=== PATIENT | female | born 1945 | race Caucasian/White ===

== ENCOUNTER 2019-07-27 07:26 | Outpatient (CLI) | payer MEDICARE, SELFPAY ==
--- NOTE | ~2019-07-27 | CT_ITS ---
EXAMINATION: CT chest w con EXAM DATE: 07/27/2019 08:22 INDICATION: Left-sided lung cancer follow-up. TECHNIQUE: Spiral CT of the chest following intravenous injection of 75 mL Omnipaque 350. Axial, cor onal and sagittal images were reviewed. Coronal maximum intensity pixel images of chest reviewed. Jake silva dose-length product (DLP) for this examination was 276.48 mGy-cm. The exposure was tailored accor ding to patient size (auto mA exposure control), and iterative reconstruction (ASIR) was used as zen tional dose reduction technique. Comparison is made to prior examination from 01/26/2019. FINDINGS: The lungs are clear. There is moderate emphysema. The main, central pulmonary arteries are dilated which can indicate elevated pulmonary arterial pressure, pulmonary arterial hypertension. The re is been partial left pneumonectomy. There is high pericardial recess accounting for the anterior m ediastinal fluid density. No central pulmonary emboli. There are no pleural or pericardial effusions . Tracheobronchial tree is patent. There is no mediastinal, hilar or axillary lymphadenopathy. There is no pneumothorax. Heart normal in size. There is mild coronary arterial calcification, ar terial sclerosis. Abdominal aortic endograft. There is thoracic spondylosis without osteoblastic or osteolytic lesions identified. There is no significant interval change. IMPRESSION: 1. Partial left pneumonectomy. Stable exam. 2. Moderate emphysema. Reviewed, dictated and finalized at location A.
[2019-07-27 08:17] LABS: Estimated Glomerular Filt Rate 54
== END 2019-07-27 07:27 | disposition home or self-care (01) ==
PROVIDERS: PCP Family Medicine; Visit Provider Internal Medicine Hematology & Oncology
DX: C34.92 Malignant neoplasm of unspecified part of left bronchus or lung (principal); J43.9 Emphysema, unspecified; Z90.2 Acquired absence of lung [part of]
CPT/HCPCS: 36415; 71260; Q9967

== ENCOUNTER 2020-04-07 11:50 | Outpatient (CLI) | payer MEDICARE, OTHER, SELFPAY ==
[2020-04-07 12:11] LABS: Basophils Absolute Auto 0.1 K/mm3 (0.0-0.1); Basophils Percent Auto 0.8 % (0.2-1.2); Eosinophils Absolute Auto 0.1 K/mm3 (0-0.3); Eosinophils Percent Auto 1.8 % (0-4.4); Hematocrit 45.7 % (37.0-47.0); Hemoglobin 15.2 g/dL (12.0-15.0); Immature Granulocyte Absolute 0.02 K/mm3 (0.00-0.031); Immature Granulocyte Percent A 0.3 % (0-0.5); Lymphocytes Absolute Auto 2.56 K/mm3 (0.9-3.2); Lymphocytes Percent Auto 35.7 % (18.3-44.2); Mean Corpuscular HGB Conc 33.3 g/dl (32-36); Mean Corpuscular Hemoglobin 30.1 pg (26-34); Mean Corpuscular Volume 90.5 fl (80-100); Mean Platelet Volume 10.1 fl (7.4-10.4); Monocytes Absolute Auto 0.5 K/mm3 (0.1-0.6); Monocytes Percent Auto 6.4 % (2.6-8.5); Neutrophils Absolute Auto 3.9 K/mm3 (1.3-6.7); Platelet Count Result 207 k/mm3 (150-375); Red Blood Count 5.05 M/mm3 (4.2-5.4); Red Cell Distribution Width 13.7 % (11.5-14.5); White Blood Count 7.2 K/mm3 (4.5-10.0)
[2020-04-07 12:20] LABS: Hemoglobin A1C 5.3 % (<5.7)
[2020-04-07 12:25] LABS: Alanine Aminotransferase 15 U/L (4-35); Albumin Level 4.3 g/dL (3.5-5.1); Alkaline Phosphatase 73 U/L (38-126); Anion Gap 7 mmol/L (8-16); Aspartate Amino Transferase 22 U/L (14-36); Bilirubin,Total 0.5 mg/dL (0.2-1.3); Blood Urea Nitrogen 19 mg/dL (7-17); Calcium 9.4 mg/dL (8.4-10.2); Carbon Dioxide 26 mmol/L (22-30); Chloride 108 mmol/L (98-107); Cholesterol 289 mg/dL (0-200); Estimated Glomerular Filt Rate 54; Glucose 95 mg/dL (65-105); HDL Direct 49 mg/dL; Potassium 4.6 mmol/L (3.4-5.0); Sodium 141 mmol/L (137-145); Triglycerides 223 mg/dL (<150)
[2020-04-07 12:38] LABS: LDL Cholesterol Direct 179 mg/dL
== END 2020-04-07 11:51 | disposition home or self-care (01) ==
LOC: ANHLAB 11:53
PROVIDERS: PCP Family Medicine; Visit Provider Family Medicine
DX: I10 Essential (primary) hypertension (principal); R73.03 Prediabetes
CPT/HCPCS: 36415; 80053; 80061; 83036; 85025

== ENCOUNTER 2020-09-20 09:57 | Outpatient (CLI) | payer MEDICARE, OTHER, SELFPAY ==
[2020-09-20 10:20] LABS: Basophils Absolute Auto 0.1 K/mm3 (0.0-0.1); Eosinophils Absolute Auto 0.2 K/mm3 (0-0.3); Eosinophils Percent Auto 1.9 % (0-4.4); Hematocrit 42.4 % (37.0-47.0); Hemoglobin 13.9 g/dL (12.0-15.0); Immature Granulocyte Absolute 0.01 K/mm3 (0.00-0.031); Immature Granulocyte Percent A 0.1 % (0-0.5); Lymphocytes Absolute Auto 2.87 K/mm3 (0.9-3.2); Lymphocytes Percent Auto 37.1 % (18.3-44.2); Mean Corpuscular HGB Conc 32.8 g/dl (32-36); Mean Corpuscular Hemoglobin 29.6 pg (26-34); Mean Corpuscular Volume 90.4 fl (80-100); Mean Platelet Volume 10.4 fl (7.4-10.4); Monocytes Absolute Auto 0.5 K/mm3 (0.1-0.6); Monocytes Percent Auto 6.3 % (2.6-8.5); Neutrophils Absolute Auto 4.1 K/mm3 (1.3-6.7); Neutrophils Percent Auto 53.6 % (45.5-73.1); Platelet Count Result 187 k/mm3 (150-375); Red Blood Count 4.69 M/mm3 (4.2-5.4); Red Cell Distribution Width 13.7 % (11.5-14.5); White Blood Count 7.7 K/mm3 (4.5-10.0)
[2020-09-20 10:23] LABS: Blood Urea Nitrogen 23 mg/dL (8-26); Carbon Dioxide 27 mmol/L (22-30); Chloride 107 mmol/L (98-109); Estimated Glomerular Filt Rate 49; Glucose 95 mg/dL (70-105); Potassium 4.8 mmol/L (3.5-4.9); Sodium 142 mmol/L (138-146)
[2020-09-20 12:51] LABS: Alanine Aminotransferase 21 U/L (4-35); Alkaline Phosphatase 66 U/L (38-126); Anion Gap 4 mmol/L (8-16); Aspartate Amino Transferase 23 U/L (14-36); Bilirubin,Total 0.4 mg/dL (0.2-1.3); Blood Urea Nitrogen 21 mg/dL (7-17); Calcium 9.3 mg/dL (8.4-10.2); Carbon Dioxide 26 mmol/L (22-30); Chloride 110 mmol/L (98-107); Estimated Glomerular Filt Rate 54; Glucose 95 mg/dL (65-105); Potassium 4.9 mmol/L (3.4-5.0); Sodium 140 mmol/L (137-145)
== END 2020-09-20 09:58 | disposition home or self-care (01) ==
PROVIDERS: PCP Family Medicine; Visit Provider Internal Medicine Hematology & Oncology
DX: C34.12 Malignant neoplasm of upper lobe, left bronchus or lung (principal)
CPT/HCPCS: 36415; 80048; 80053; 85025

== ENCOUNTER 2020-09-22 08:05 | Outpatient (CLI) | payer MEDICARE, OTHER, SELFPAY ==
--- NOTE | ~2020-09-22 | CT_ITS ---
EXAMINATION: CT diagnostic chest w con DATE: 09/22/2020 08:54 INDICATION: Malignant neoplasm of the upper lobe of the left lung TECHNIQUE: Transaxial computed tomographic images of the chest were obtained after the administration of 75 cc of Omnipaque 350 intravenous contrast. The dose-length product (DLP) was 219.36 mGy-cm. Ite rative reconstruction was used. COMPARISON: 07/27/2019 FINDINGS: There is moderate emphysema. A new 7 mm nodule is present in the right lung apex on image 2 5. Changes of the left upper lobectomy are noted. There is no pleural effusion or pneumothorax. No pa thologically enlarged thoracic lymph nodes are identified. The heart size is normal. A partially imag ed endoluminal stent is noted in the abdominal aorta. There is a small sliding hiatal hernia. IMPRESSION: 1. Right upper lobe nodule concerning for primary bronchogenic carcinoma. Recommend follow-up CT in t hree months, PET/CT, or biopsy. Reviewed, dictated and finalized at location A. IMPRESSION: 1. Right upper lobe nodule concerning for primary bronchogenic carcinoma. Recom mend follow-up CT in three months, PET/CT, or biopsy.
== END 2020-09-22 08:06 | disposition home or self-care (01) ==
PROVIDERS: PCP Family Medicine; Visit Provider Internal Medicine Hematology & Oncology
DX: C34.12 Malignant neoplasm of upper lobe, left bronchus or lung (principal)
CPT/HCPCS: 71260; Q9967

== ENCOUNTER 2021-02-02 15:25 | Outpatient (CLI) | payer MEDICARE, OTHER, SELFPAY ==
--- NOTE | ~2021-02-02 | DEXA_ITS ---
Bone Density Report Name: Shonda De La Fuente Age: 76 Sex: Female Ethnicity: White Date of : 1945 Indication: postmenopausal; height loss; cancer; asthma or emphysema; Referring Provider: JAYCEE ORLANDO Study: Bone densitometry was performed. Exam Date: February 02, 2021 Accession number: [id number] Bone Density: Region BMD T-score Z-score Classification AP Spine (L1, L2, L3) 1.091 0.7 3.0 Normal Femoral Neck (Left) 0.667 -1.6 0.4 Osteopenia Total Hip (Left) 0.878 -0.5 1.3 Normal Total Hip Bilateral Avg 0.907 -0.3 1.5 Normal Femoral Neck (Right) 0.756 -0.8 1.2 Normal Total Hip (Right) 0.935 -0.1 1.7 Normal World Health Organization criteria for BMD impression classify patients as: Normal (T-score at or above -1.0), Osteopenia (T-score between -1.0 and -2.5), or Osteoporosis (T-score at or below -2.5). 10-year Fracture Risk(1): Major Osteoporotic Fracture 12% Hip Fracture 3.9% Reported Risk Factors: [place] (), Neck BMD=0.667, BMI=28.3, smoking (1) FRAX(R) Version 3.08. Fracture probability calculated for an untreated patient. Fracture probability may be lower if the patient has received treatment. Clinical Information Provided by Patient: Smokes Has the following medical conditions: Asthma or Emphysema, Cancer Patient maximum height was 67 Menopause Age: 49 No regular weight bearing exercise Drinks caffeinated beverages Onset of menses at age 14 Number of children 2 Impression: The patient has low bone mass, based on the Left Femoral Neck T-score. The patient has an estimated ten-year risk of hip fracture of 3.9% and an estimated ten-year risk of major fracture of 12%, based on the WHO FRAX algorithm. The patient has risk factors, including: smoking. Discussion: BONE DENSITY IS LOW AT ONE OR MORE SKELETAL SITES. THE PATIENT'S BMD AND CLINICAL RISK FACTORS CONTRIBUTE TO THIS PATIENT'S INCREASED RISK OF FRACTURE. This patient's lowest T-score is low at one or more skeletal sites. It meets the World Health Organization's (WHO) criteria for ?low bone mass? (T-score between -1.0 and -2.5). The patient's 10-year risk of hip fracture as calculated by FRAX exceeds the threshold where pharmacological therapy is recommended by the National Osteoporosis Foundation (NOF). However, all treatment decisions require clinical judgment and consideration of individual patient factors, including patient preferences, comorbidities, previous drug use, risk factors not captured in the FRAX model (e.g., frailty, falls, vitamin D deficiency, increased bone turnover, interval significant decline in bone density) and possible under or overestimation of fracture risk by FRAX. The patient should follow a healthful lifestyle (good nutrition with adequate calcium and vitamin D, and appropriate weight-bearing exerc
--- NOTE | ~2021-02-02 | US_ITS ---
US pelvic complete w TV DATE: 02/02/2021 16:35 INDICATION: Right ovarian cyst TECHNIQUE: Real-time imaging via transabdominal and transvaginal approaches COMPARISON: None FINDINGS: The uterus measures 6.1 cm height, 3.3 cm AP and 3.8 cm transverse dimension. There is a very prominent up to 14.5 x 25 mm irregular hyperechoic vascular area at the central uteri ne fundus, apparently within the uterine cavity suspicious for endometrial cancer. Submucosal uterine fibroid is considered much less likely. Gynecologic consult is recommended. The right ovary measures 3.1 x 2.4 x 1.9 cm, with vascularity. There is a 2.5 x 1.6 x 2.2 cm right ovarian cyst. The left ovary measures 2.1 x 1.3 x 1.1 cm, with vascularity. The ovaries are otherwise unremarkable. No abnormal pelvic free fluid collection is detected. IMPRESSION: Prominent irregular hypoechoic vascular mass within the endometrial cavity, likely due to endometrial cancer 2.5 cm right ovarian cyst Dr. Herndon contacted the emergency service for Dr. Polo on 02/03/2021 at 1626 hours to relay the resul ts. Dr. Valadez was to be contacted so that the report endometrial mass likely due to malignancy could be delivered. Reviewed, dictated and finalized at Location A. Reviewed, dictated and finalized at location A. IMPRESSION: Prominent irregular hypoechoic vascular mass within the endometrial cavity, likely due to endometrial cancer 2.5 cm right ovarian cyst Dr. Herndon contacted the emergency service for Dr. Polo on 02/03/2021 at 1626 ho urs to relay the results. Dr. Valadez was to be contacted so that the report endometrial mass likely due t o malignancy could be delivered.
== END 2021-02-02 15:26 | disposition home or self-care (01) ==
PROVIDERS: PCP Family Medicine; Visit Provider Obstetrics & Gynecology
DX: N83.201 Unspecified ovarian cyst, right side (principal); Z78.0 Asymptomatic menopausal state; M85.852 Other specified disorders of bone density and structure, left thigh
CPT/HCPCS: 76830; 76856; 77080

== ENCOUNTER 2021-03-20 01:23 | Day surgery (SDC) | payer MEDICARE, OTHER, SELFPAY ==
[2021-03-15 12:31] VITALS: BMI 28.1
--- NOTE | 2021-03-16 12:11 | PM.IMHP ---
H&P: HPI History of Present Illness Date/Time: 03/16/21 12:11 76 year old with endometrial lesion on ultrasound. She denies postmenopausal bleeding, pelvic pain, vaginal discharge Chief Complaint: endometrial mas on ultrasound Review of Systems Review of Systems: All systems reviewed & are unremarkable except as noted in HPI and below PMFSH Past Medical History Medical History Basal cell carcinoma of skin of other and unspecified parts of face COPD (chronic obstructive pulmonary disease) Essential (primary) hypertension Insomnia Multiple lung nodules on CT Osteoarthritis Primary adenocarcinoma of upper lobe of left lung Skin cancer 2016 Vaginal delivery x2 Vitamin D deficiency Surgical History Surgical History History of AAA (abdominal aortic aneurysm) repair 07/2017 History of appendectomy (~1959) 1959 History of gastric surgery (~2017) stent placed in stomach 2017 History of lobectomy of lung 08/2017 - left upper lobe Family History Family History Mother Patient's mother is in good health Family history of cardiovascular disease, Onset Age: 83 Father Patient's father is in good health Family history of cardiovascular disease, Onset Age: 85 Family history of lung cancer Sibling Family history of type 2 diabetes mellitus Diabetes mellitus Grandparent Family history unknown, Onset Age: 92 Social History Social History Smoking packs per day: 1 Smoking cigarettes per day: 20.0 Years smoked: 64 Smoking pack-years: 64.00 Smoking status: Current every day smoker Tobacco type: cigarettes Second hand tobacco smoke exposure: Yes Smoking end date: 03/26/19 Additional smoking assessment comments: Patient started smoking last month, if she is unable to sleep she smokes. Alcohol intake: current Alcohol use details: STATES ABOUT 4 BOTTLES OF BAILEYS [place]ON CREAM/YEAR Substance use: current Substance use type: marijuana Other substance usage details: STATES 1/4 OZ/WEEK - SMOKES DAILY Last use: 03/14/21 Spiritual care concerns: No Meds Home Medications and Allergies Home Medications Medication Instructions Recorded Confirmed Type aspirin-caffeine 500 mg-32.5 mg 1 tablet PO DAILY 01/07/20 03/15/21 History tablet atorvastatin 40 mg tablet 40 mg PO DAILY #90 tablet 10/18/20 03/15/21 Rx lisinopril 20 mg tablet 20 mg PO DAILY #90 tablet 11/23/20 03/15/21 Rx hydroxyzine HCl 10 mg tablet 10 mg PO .QHS PRN tablet 01/09/21 03/15/21 History alprazolam 0.5 mg tablet 0.25 mg PO DAILY PRN #30 tablet 01/27/21 03/15/21 Rx cholecalciferol (vitamin D3) 1,250 1,250 mcg PO WEEKLY #12 cap 01/30/21 03/15/21 Rx mcg (50,000 unit) capsule albuterol sulfate [Ventolin HFA] See Rx Instructions INHALATION Q4H 03/15/21 03/15/21 History PRN Allergies Allergy/AdvReac Type Severity Reaction Status Date / Time adhesive tape AdvReac Unknown SWELLING, Verified 03/15/21 12:28 REDDNESS Exam Const: General: healthy appearing, no acute distress, alert and awake Resp: Auscultation: clear to auscultation bilaterally Cardio: Rate: regular rate Rhythm: regular rhythm GI: Inspection: non-distended GI Palp: Yes Soft to palpation and No Tenderness to palpation present (GI) : Bimanual exam- vagina & uterus: normal bimanual exam, uterine size normal, uterine mobility normal, non-tender and soft Bimanual Exam- Adnexa, other: normal adnexae, no masses and No adnexal tenderness Extrem: General: no pedal edema and no calf tenderness Psych: Mental Status: mental status grossly normal Assessment and Plan Assessment and plan (1) Endometrial mass: Code(s): N94.89 - Other specified conditions associate
[2021-03-20 10:15] VITALS: BP 145/87; PULSE 55; RESP 18; TEMP 36.2; O2SAT 96; BMI 28.0
[2021-03-20] MEDS: ACETAMINOPHEN 500 MG TABLET 1000 MG PO (10:32)
[2021-03-20] MEDS: LACTATED RINGERS 1,000 ML 30 ML IV CONT (11:00)
--- NOTE | 2021-03-20 11:04 | SUR.PREOP ---
1000; pt states she had an episode of diarrhea this morning. States she feels just fine .
--- NOTE | 2021-03-20 11:23 | WPDANESEPPF ---
Anes - Initial Pre Proc Eval Procedure: Operation Date: 03/20/21 12:00 Proposed Procedures p Hysteroscopy, Dilation and Curettage, Possible Removal Endometrial Mass, Possible Myosure - Karoline Rowe MD Date/Time: 03/20/21 11:23 Surgeon: Karoline Rowe MD Pre Op Diagnosis: endometrial mass Patient Data Age: 76 Gender: F Height: 1.65 m Weight: 76.4 kg Last Vital Signs Temp 36.2 C L 03/20/21 10:15 Pulse 55 L 03/20/21 10:15 Resp 18 03/20/21 10:15 BP 145/87 H 03/20/21 10:15 Pulse Ox 96 03/20/21 10:15 Allergies Allergy/AdvReac Type Severity Reaction Status Date / Time adhesive tape AdvReac Unknown SWELLING, Verified 03/20/21 10:04 REDDNESS Home Medications Medication Instructions Recorded Confirmed Type aspirin-caffeine 500 mg-32.5 mg 1 tablet PO DAILY 01/07/20 03/15/21 History tablet atorvastatin 40 mg tablet 40 mg PO DAILY #90 tablet 10/18/20 03/20/21 Rx lisinopril 20 mg tablet 20 mg PO DAILY #90 tablet 11/23/20 03/20/21 Rx hydroxyzine HCl 10 mg tablet 10 mg PO .QHS PRN tablet 01/09/21 03/20/21 History alprazolam 0.5 mg tablet 0.25 mg PO DAILY PRN #30 tablet 01/27/21 03/20/21 Rx cholecalciferol (vitamin D3) 1,250 1,250 mcg PO WEEKLY #12 cap 01/30/21 03/20/21 Rx mcg (50,000 unit) capsule albuterol sulfate [Ventolin HFA] See Rx Instructions INHALATION Q4H 03/15/21 03/20/21 History PRN Patient hx anesthesia problems: none Family hx anesthesia problems: none Results Review: All pre-operative results and documents have been reviewed as part of the pre-operative evaluation. [facility] Past Medical History Medical History Basal cell carcinoma of skin of other and unspecified parts of face COPD (chronic obstructive pulmonary disease) Essential (primary) hypertension Insomnia Multiple lung nodules on CT Osteoarthritis Primary adenocarcinoma of upper lobe of left lung Skin cancer 2016 Vaginal delivery x2 Vitamin D deficiency Surgical History Surgical History History of AAA (abdominal aortic aneurysm) repair 07/2017 History of appendectomy (~1960) 1960 History of gastric surgery (~2017) stent placed in stomach 2017 History of lobectomy of lung 08/2017 - left upper lobe Family History Family History Mother Patient's mother is in good health Family history of cardiovascular disease, Onset Age: 83 Father Patient's father is in good health Family history of cardiovascular disease, Onset Age: 85 Family history of lung cancer Sibling Family history of type 2 diabetes mellitus Diabetes mellitus Grandparent Family history unknown, Onset Age: 92 Social History Social History Smoking packs per day: 1 Smoking cigarettes per day: 20.0 Years smoked: 64 Smoking pack-years: 64.00 Smoking status: Current every day smoker Tobacco type: cigarettes Second hand tobacco smoke exposure: Yes Smoking end date: 03/26/19 Additional smoking assessment comments: Patient started smoking last month, if she is unable to sleep she smokes. Alcohol intake: current Alcohol use details: STATES ABOUT 4 BOTTLES OF BAILEYS [place] CREAM/YEAR Substance use: current Substance use type: marijuana Other substance usage details: STATES 1/4 OZ/WEEK - SMOKES DAILY Last use: 03/14/21 Living arrangements: alone Spiritual care concerns: No Anes - Eval Final PreProcedure Day of Procedure 03/20/21 11:23 Patient weight: overweight Heart: regular rate and rhythm Lungs: rhonchi and wheezes Airway: Mallampati scale class II and special considerations poor dentition Neurological: alert and oriented ASA classification: III Emergent: no Anesthetic plan: proceed Anesthesia type and monitoring: general GIVS and standar
--- NOTE | 2021-03-20 11:37 | WPDHPUPDATE1 ---
History and Physical Update Update Date/Time: 03/20/21 11:37 History and Physical has been reviewed, including an updated exam of the patient. There are NO changes in the patient's condition. Risks, benefits, and alternatives have been discussed and questions answered. Patient agrees to proceed with procedure.
--- NOTE | 2021-03-20 12:31 | W.PM.PROC2 ---
Procedure Note - Detailed Date of Procedure 03/20/21 Pre-op Diagnosis endometrial mass Post-op Diagnosis same Procedure Performed D&C, hysteroscopy, removal of endometrial lesions using MyoSure Surgeon Karoline Rowe MD Anesthesia MAC Indications Endometrial mass suspicious for cancer seen on ultrasound Findings solid mass on posterior endometrial wall, visually consistent with fibroid Description of Procedure She was taken to the operating room where she was sedated and placed in the dorsal lithotomy position. A speculum was placed in the vagina. The anterior lip of the cervix was grasped with single-tooth tenaculum. The cervix was dilated to allow passage of the hysteroscope. A solid endometrial mass was visible coming from the posterior wall of the endometrium. This mass looked consistent with a fibroid. The MyoSure scope and device were made ready. The MyoSure device was used, under direct visualization, to remove the entire endometrial lesion. Once the endometrial cavity appeared normal and the lesion was entirely removed, the hysteroscope was removed. The tenaculum was removed from the cervix. Excellent hemostasis was visualized of the tenaculum sites. There was a slight amount of bleeding coming from the cervical os, consistent with the probable fibroid being removed. All instruments were removed from the vagina. She tolerated the procedure well. Sponge, lap, and instrument counts were correct x2. She was taken to the recovery room in stable condition. Estimated Blood Loss 20 Drains No Packing No Pathology yes Complications No immediate complications Condition stable Disposition PACU
[2021-03-20 13:19] VITALS: BP 152/77; PULSE 55; RESP 18; O2SAT 95
[2021-03-20 13:50] VITALS: BP 152/90; PULSE 48
[2021-03-20 14:05] VITALS: BP 155/88; PULSE 45
== END 2021-03-20 14:11 | disposition home or self-care (01) ==
PROVIDERS: PCP Family Medicine; Visit Provider Obstetrics & Gynecology
PROC: 0U5B8ZZ Destruction of Endometrium, Via Natural or Artificial Opening Endoscopic (ICD-10-PCS; CPT 58563; principal; 2021-03-20 12:00)
DX: D25.0 Submucous leiomyoma of uterus (principal); N85.8 Other specified noninflammatory disorders of uterus; Z79.82 Long term (current) use of aspirin; Z79.51 Long term (current) use of inhaled steroids; J44.9 Chronic obstructive pulmonary disease, unspecified; I10 Essential (primary) hypertension; Z85.828 Personal history of other malignant neoplasm of skin; M19.90 Unspecified osteoarthritis, unspecified site; Z85.118 Personal history of other malignant neoplasm of bronchus and lung; E55.9 Vitamin D deficiency, unspecified; F17.210 Nicotine dependence, cigarettes, uncomplicated; F12.90 Cannabis use, unspecified, uncomplicated
CPT/HCPCS: 58561; 88305; A9270; J2704; J3010; J7030; J7120

== ENCOUNTER 2021-03-23 09:16 | Outpatient (CLI) | payer MEDICARE, OTHER, SELFPAY ==
[2021-03-23 09:33] LABS: Basophils Absolute Auto 0.1 K/mm3 (0.0-0.1); Basophils Percent Auto 0.6 % (0.2-1.2); Eosinophils Absolute Auto 0.1 K/mm3 (0-0.3); Eosinophils Percent Auto 1.1 % (0-4.4); Hematocrit 48.4 % (37.0-47.0); Hemoglobin 15.6 g/dL (12.0-15.0); Immature Granulocyte Absolute 0.01 K/mm3 (0.00-0.031); Immature Granulocyte Percent A 0.1 % (0-0.5); Lymphocytes Absolute Auto 2.56 K/mm3 (0.9-3.2); Lymphocytes Percent Auto 27.7 % (18.3-44.2); Mean Corpuscular HGB Conc 32.2 g/dl (32-36); Mean Corpuscular Hemoglobin 29.6 pg (26-34); Mean Corpuscular Volume 91.8 fl (80-100); Mean Platelet Volume 10.6 fl (7.4-10.4); Monocytes Absolute Auto 0.6 K/mm3 (0.1-0.6); Monocytes Percent Auto 6.7 % (2.6-8.5); Neutrophils Absolute Auto 5.9 K/mm3 (1.3-6.7); Neutrophils Percent Auto 63.8 % (45.5-73.1); Platelet Count Result 205 k/mm3 (150-375); Red Blood Count 5.27 M/mm3 (4.2-5.4); Red Cell Distribution Width 13.9 % (11.5-14.5); White Blood Count 9.2 K/mm3 (4.5-10.0)
[2021-03-23 09:37] LABS: Blood Urea Nitrogen 19 mg/dL (8-26); Carbon Dioxide 24 mmol/L (22-30); Chloride 105 mmol/L (98-109); Estimated Glomerular Filt Rate 54; Glucose 110 mg/dL (70-105); Potassium 4.4 mmol/L (3.5-4.9); Sodium 143 mmol/L (138-146)
[2021-03-23 11:07] LABS: Alanine Aminotransferase 25 U/L (4-35); Albumin Level 4.5 g/dL (3.5-5.1); Alkaline Phosphatase 81 U/L (38-126); Anion Gap 10 mmol/L (8-16); Aspartate Amino Transferase 29 U/L (14-36); Bilirubin,Total 0.7 mg/dL (0.2-1.3); Blood Urea Nitrogen 18 mg/dL (7-17); Calcium 9.9 mg/dL (8.4-10.2); Carbon Dioxide 24 mmol/L (22-30); Chloride 108 mmol/L (98-107); Estimated Glomerular Filt Rate 54; Glucose 109 mg/dL (65-110); Potassium 4.4 mmol/L (3.4-5.0); Sodium 142 mmol/L (137-145)
== END 2021-03-23 09:17 | disposition home or self-care (01) ==
LOC: ANHLAB 09:19
PROVIDERS: PCP Family Medicine; Visit Provider Internal Medicine Hematology & Oncology
DX: C34.12 Malignant neoplasm of upper lobe, left bronchus or lung (principal)
CPT/HCPCS: 36415; 80048; 80053; 85025

== ENCOUNTER 2021-03-28 08:01 | Outpatient (CLI) | payer MEDICARE, OTHER, SELFPAY ==
--- NOTE | ~2021-03-28 | CT_ITS ---
EXAMINATION: CT diagnostic chest w con DATE: 03/28/2021 08:44 INDICATION: Follow-up right upper lobe nodule TECHNIQUE: Computed tomography (CT) of the chest was performed with 75 cc intravenous contrast. The d ose-length product was 155.76 mGy-cm. Automated exposure control and iterative reconstruction technPatsnap ue were employed. COMPARISON: CT dated 09/22/2020 FINDINGS: There is residual thymic tissue. No evidence for central pulmonary embolism. Borderline siz ed precarinal lymph node measuring 9 mm unchanged. Heart size normal. No significant pleural or peric ardial effusion. There is partially visualized aortic stent in the upper abdomen. There is moderate e mphysema. There is an enlarging spiculated nodule in the right upper lobe measuring 10 mm greatest di mension compared with 7 mm on prior examination. No endobronchial lesions.There is a 5 mm groundglass nodule of the right upper lobe anteriorly which is new since prior examination. No focal lytic or bl astic lesions are identified. IMPRESSION: 1. Enlarging spiculated right upper lobe nodule, concerning for bronchogenic carcinoma. New 5 mm righ t upper lobe nodule. Cannot exclude metastatic disease. Correlation with percutaneous biopsy or PET/C T scan recommended. Reviewed, dictated and finalized at location A. INUM POOL INSTALLER IMPRESSION: 1. Enlarging spiculated right upper lobe nodule, concerning for bronchogenic ca rcinoma. New 5 mm right upper lobe nodule. Cannot exclude metastatic disease. C orrelation with percutaneous biopsy or PET/CT scan recommended.
== END 2021-03-28 08:02 | disposition home or self-care (01) ==
LOC: ANHIMG 08:04
PROVIDERS: PCP Family Medicine; Visit Provider Internal Medicine Hematology & Oncology
DX: R91.1 Solitary pulmonary nodule (principal)
CPT/HCPCS: 71260; Q9967

== ENCOUNTER 2021-04-04 07:42 | Outpatient (CLI) | payer MEDICARE, OTHER, SELFPAY ==
--- NOTE | ~2021-04-04 | PE_ITS ---
EXAMINATION: PET skull to mid thigh DATE: 04/04/2021 11:06 INDICATION: Lung nodule. TECHNIQUE: Blood glucose level was 105 mg/dL. 9.34 mCi of 18-fluorodeoxyglucose (18-FDG) was administ ered i.v. Low dose computed tomography (CT) images were acquired from the base of the brain to the pr oximal thighs for attenuation correction and anatomic localization. Automated exposure control was em ployed. Dose-length product (DLP) was 602 mGy-cm. Positron emission tomography (PET) images were acqu ired in the same distribution. COMPARISON: Chest CT 03/28/2021, 09/22/20 FINDINGS: Head/neck: There are no pathologically enlarged lymph nodes. Chest: There is moderate emphysema. There is a 9 mm cavitary nodule with maximum SUV of 3.5 in right lung upper lobe. A calcified left lung nodule and calcified left hilar lymph nodes are consistent wit h old granulomatous disease. There are changes of left upper lobectomy. No pleural effusion. Cardiome ludwig is noted. No pericardial effusion. There are coronary artery calcifications. Abdomen/pelvis/proximal thighs: The liver, gallbladder, spleen, pancreas, adrenal glands, and kidneys are normal. 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 There are no dilated loops of bowel. There is diverticulosis of the colon wi thout evidence of diverticulitis. There are no pathologically enlarged lymph nodes. There is no free intraperitoneal fluid. There is a hemangioma in L2 vertebral body. IMPRESSION: 1. 9 mm nodule with increased activity in right lung upper lobe, increased from 7 mm on 09/22/2020, con sistent with primary bronchogenic carcinoma versus metastatic disease. 2. Moderate emphysema. 3. Left lung upper lobectomy. Reviewed, dictated and finalized at location A. MOGRAPH RECORDER IMPRESSION: 1. 9 mm nodule with increased activity in right lung upper lobe, increased from 7 mm on 09/22/2020, consistent with primary bronchogenic carcinoma versus metast atic disease. 2. Moderate emphysema. 3. Left lung upper lobectomy.
[2021-04-04 08:03] LABS: Glucose Point of Care 105 mg/dl (65-105)
== END 2021-04-04 07:43 | disposition home or self-care (01) ==
LOC: ANHIMG 07:48
PROVIDERS: PCP Family Medicine; Visit Provider Internal Medicine Hematology & Oncology
DX: R91.1 Solitary pulmonary nodule (principal); J43.9 Emphysema, unspecified
CPT/HCPCS: 78815; A9552

== ENCOUNTER 2021-07-26 09:24 | Outpatient (CLI) | payer MEDICARE, OTHER, SELFPAY ==
--- NOTE | ~2021-07-26 | CT_ITS ---
EXAMINATION: CT diagnostic chest w con EXAM DATE: 07/26/2021 10:01 INDICATION: Lung nodule demonstrating increased FDG activity. Follow-up. Partial left pneumonectomy. TECHNIQUE: Spiral CT of the chest following intravenous injection of 75 mL Omnipaque 350. Axial, cor onal and sagittal images of the chest were reviewed. Coronal maximum intensity pixel images of chest reviewed. The dose-length product (DLP) for this examination was 200.75 mGy-cm. The exposure was t ailored according to patient size (auto mA exposure control), and iterative reconstruction (ASIR) was used as additional dose reduction technique. Comparison is made to prior examination from 03/28/2021. FINDINGS: Previously reported right apical nodule measures 3 x 5 mm today, was 9 mm maximally in Nov ember, has substantially decreased in volume. There is moderate emphysema and hyperinflation. No pulm onary emboli. There are no pleural or pericardial effusions. Tracheobronchial tree is patent. Th ere is no mediastinal, hilar or axillary lymphadenopathy. There is no pneumothorax. Heart normal in size. There is mild coronary arterial calcification, arterial sclerosis. Abdominal aortic stent . There is mild thoracic spondylosis without osteoblastic or osteolytic lesions identified. IMPRESSION: 1. Substantial decrease in volume of right apical nodule, treated lung cancer or inflammatory proces s. 2. Moderate emphysema and hyperinflation. 3. Partial left pneumonectomy. Reviewed, dictated and finalized at location A. WHEEL ALIGNMENT SPECIALIST IMPRESSION: 1. Substantial decrease in volume of right apical nodule, treated lung cancer or inflammatory process. 2. Moderate emphysema and hyperinflation. 3. Partial left pneumonectomy.
[2021-07-26 09:55] LABS: Estimated Glomerular Filt Rate 54
== END 2021-07-26 09:25 | disposition home or self-care (01) ==
LOC: ANHIMG 09:27
PROVIDERS: PCP Family Medicine; Visit Provider Internal Medicine Hematology & Oncology
DX: R91.1 Solitary pulmonary nodule (principal); J43.9 Emphysema, unspecified; R91.8 Other nonspecific abnormal finding of lung field
CPT/HCPCS: 71260; Q9967

== ENCOUNTER 2021-11-02 09:23 | Outpatient (CLI) | payer MEDICARE, OTHER, SELFPAY ==
[2021-11-02 09:42] LABS: Basophils Absolute Auto 0.1 K/mm3 (0.0-0.1); Basophils Percent Auto 0.7 % (0.2-1.2); Eosinophils Absolute Auto 0.1 K/mm3 (0-0.3); Eosinophils Percent Auto 0.8 % (0-4.4); Hematocrit 46.9 % (37.0-47.0); Hemoglobin 15.5 g/dL (12.0-15.0); Immature Granulocyte Absolute 0.02 K/mm3 (0.00-0.031); Immature Granulocyte Percent A 0.2 % (0-0.5); Lymphocytes Absolute Auto 1.83 K/mm3 (0.9-3.2); Lymphocytes Percent Auto 21.8 % (18.3-44.2); Mean Corpuscular Hemoglobin 30.5 pg (26-34); Mean Corpuscular Volume 92.3 fl (80-100); Mean Platelet Volume 10.6 fl (7.4-10.4); Monocytes Absolute Auto 0.4 K/mm3 (0.1-0.6); Monocytes Percent Auto 5.2 % (2.6-8.5); Neutrophils Percent Auto 71.3 % (45.5-73.1); Platelet Count Result 172 k/mm3 (150-375); Red Blood Count 5.08 M/mm3 (4.2-5.4); Red Cell Distribution Width 13.3 % (11.5-14.5); White Blood Count 8.4 K/mm3 (4.5-10.0)
[2021-11-02 13:05] LABS: Alanine Aminotransferase 22 U/L (6-35); Albumin Level 4.3 g/dL (3.5-5.1); Alkaline Phosphatase 85 U/L (38-126); Anion Gap 6 mmol/L (8-16); Aspartate Amino Transferase 22 U/L (14-36); Bilirubin,Total 0.4 mg/dL (0.2-1.3); Blood Urea Nitrogen 23 mg/dL (7-17); Calcium 9.1 mg/dL (8.4-10.2); Carbon Dioxide 24 mmol/L (22-30); Chloride 110 mmol/L (98-107); Estimated Glomerular Filt Rate 54; Glucose 111 mg/dL (65-110); Potassium 3.9 mmol/L (3.4-5.0); Sodium 140 mmol/L (137-145)
== END 2021-11-02 09:24 | disposition home or self-care (01) ==
LOC: ANHLAB 09:25
PROVIDERS: PCP Family Medicine; Visit Provider Internal Medicine Hematology & Oncology
DX: C34.12 Malignant neoplasm of upper lobe, left bronchus or lung (principal)
CPT/HCPCS: 36415; 80053; 85025

== ENCOUNTER 2021-11-02 10:01 | Outpatient (CLI) | payer MEDICARE, OTHER, SELFPAY ==
--- NOTE | ~2021-11-02 | CT_ITS ---
EXAMINATION:CT diagnostic chest wo con DATE: 11/02/2021 10:25 INDICATION: Malignant neoplasm of upper lobe of left lung. TECHNIQUE: Computed tomography (CT) of the chest was performed without intravenous contrast. Automate d exposure control and iterative reconstruction technique were employed. The dose-length product (DLP ) was 190.19 mGy-cm. COMPARISON: Chest CT 07/26/2021, 03/28/21, 09/22/20 FINDINGS: There is moderate emphysema. There is a 4 mm nodule in right upper lobe that measured 9 mm on 03/28/2021 and 5 mm on 07/26/2021. There are multiple new 3-4 mm nodules in apical right upper lobe. There are changes of left upper lobectomy. No pleural effusion. The heart size is normal. No pericard ial effusion. There are no pathologically enlarged lymph nodes. There is an 8 mm nodule in right thyr oid lobe, likely not clinically significant. There is a stent graft in abdominal aorta. There is charlotte re cervical and mid thoracic spondylosis. IMPRESSION: 1. 4 mm right upper lobe pulmonary nodule that measured 9 mm on 03/28/2021 and 5 mm on 07/26/2021, consi stent with improvement metastatic disease. 2. New small nodules in apical right upper lobe, likely radiation pneumonitis. Reviewed, dictated and finalized at location B. IMPRESSION: 1. 4 mm right upper lobe pulmonary nodule that measured 9 mm on 03/28/2021 and 5 mm on 07/26/2021, consistent with improvement metastatic disease. 2. New small nodules in apical right upper lobe, likely radiation pneumonitis.
== END 2021-11-02 10:02 | disposition home or self-care (01) ==
PROVIDERS: PCP Family Medicine; Visit Provider Internal Medicine Hematology & Oncology
DX: C34.12 Malignant neoplasm of upper lobe, left bronchus or lung (principal); R91.8 Other nonspecific abnormal finding of lung field
CPT/HCPCS: 36415; 71250; 80053; 85025

== ENCOUNTER 2022-01-19 07:36 | Outpatient (CLI) | payer MEDICARE, OTHER, SELFPAY ==
--- NOTE | ~2022-01-19 | CT_ITS ---
EXAMINATION: CT diagnostic chest w con DATE: 01/19/2022 08:02 INDICATION: Malignant lung neoplasm TECHNIQUE: Computed tomography (CT) of the chest was performed with 75 CC Omnipaque 350 intravenous c ontrast. Automated exposure control and iterative reconstruction technique were employed. Exam dose: 147.84 mGy-cm total exam DLP. COMPARISON: 11/02/2021 CT chest FINDINGS: Normal heart size. There is mild thoracic aortic aneurysm, the aortic arch measuring approx imately 3.1 cm diameter, the descending thoracic aorta approximately 3.4 cm diameter. No thoracic aor tic dissection. Endovascular abdominal aortic stent begins near the origin of the superior mesenteric artery. Moderate emphysematous changes are noted, most prominent in the right upper lobe and apex. No pericardial or pleural effusion. No hilar or mediastinal mass lesion or lymphadenopathy. New right upper lobe densities are noted since 11/02/2021: Approximately 6 mm spiculated opacity in the right apex (series 4 image 24). Approximately 8 mm spiculated opacity in the right apex (image 26). Irregular approximately 3.8 x 7.8 mm opacity in the anterolateral right apical area, new processes im age 30). New 4.6 mm opacity in the mid posterior right apical area (image 30). New approximately 3 to 4 mm mojgan llate opacity in the lateral right upper lobe (image 44). New peripheral 3 mm opacity in the left upper lobe (image 40). Normal morphology of the adrenal glands. Prominent degenerative disc disease in the lower cervical spine and prominent degenerative disease an d eburnation and spurring at T8-9.. No suspicious osteolytic or osteoblastic lesions are noted. IMPRESSION: Multiple new opacities in the right upper lobe and new 3 mm opacity in the left upper lo be since 11/02/2021. CT follow-up examination in 3-6 months is recommended. Emphysema Reviewed, dictated and finalized at [facility]. Reviewed, dictated and finalized at [facility]. IMPRESSION: Multiple new opacities in the right upper lobe and new 3 mm opacit y in the left upper lobe since 11/02/2021. CT follow-up examination in 3-6 month s is recommended. Emphysema
[2022-01-19 07:57] LABS: Estimated Glomerular Filt Rate 54
== END 2022-01-19 07:37 | disposition home or self-care (01) ==
PROVIDERS: PCP Family Medicine; Visit Provider Internal Medicine Hematology & Oncology
DX: C34.12 Malignant neoplasm of upper lobe, left bronchus or lung (principal); J43.9 Emphysema, unspecified
CPT/HCPCS: 71260; Q9967

== ENCOUNTER 2022-01-26 09:29 | Outpatient (CLI) | payer MEDICARE, OTHER, SELFPAY ==
[2022-01-26 09:48] LABS: Basophils Absolute Auto 0.1 K/mm3 (0.0-0.1); Basophils Percent Auto 0.9 % (0.2-1.2); Eosinophils Absolute Auto 0.1 K/mm3 (0-0.3); Eosinophils Percent Auto 1.3 % (0-4.4); Hematocrit 45.8 % (37.0-47.0); Hemoglobin 15.1 g/dL (12.0-15.0); Immature Granulocyte Absolute 0.03 K/mm3 (0.00-0.031); Immature Granulocyte Percent A 0.4 % (0-0.5); Lymphocytes Absolute Auto 1.78 K/mm3 (0.9-3.2); Lymphocytes Percent Auto 26.1 % (18.3-44.2); Mean Corpuscular Hemoglobin 30.3 pg (26-34); Mean Platelet Volume 10.3 fl (7.4-10.4); Monocytes Absolute Auto 0.4 K/mm3 (0.1-0.6); Monocytes Percent Auto 5.7 % (2.6-8.5); Neutrophils Absolute Auto 4.5 K/mm3 (1.3-6.7); Neutrophils Percent Auto 65.6 % (45.5-73.1); Platelet Count Result 179 k/mm3 (150-375); Red Blood Count 4.98 M/mm3 (4.2-5.4); Red Cell Distribution Width 13.7 % (11.5-14.5); White Blood Count 6.8 K/mm3 (4.5-10.0)
[2022-01-26 09:53] LABS: Blood Urea Nitrogen 16 mg/dL (8-26); Carbon Dioxide 22 mmol/L (22-30); Chloride 107 mmol/L (98-109); Estimated Glomerular Filt Rate > 60; Glucose 114 mg/dL (70-105); Ionized Calcium (POC) 1.19 mmol/L (1.11-1.31); Sodium 141 mmol/L (138-146)
[2022-01-26 13:23] LABS: Alanine Aminotransferase 23 U/L (6-35); Albumin Level 4.4 g/dL (3.5-5.1); Alkaline Phosphatase 85 U/L (38-126); Anion Gap 11 mmol/L (8-16); Aspartate Amino Transferase 25 U/L (14-36); Bilirubin,Total 0.6 mg/dL (0.2-1.3); Blood Urea Nitrogen 16 mg/dL (7-17); Calcium 9.1 mg/dL (8.4-10.2); Carbon Dioxide 22 mmol/L (22-30); Chloride 107 mmol/L (98-107); Estimated Glomerular Filt Rate > 60; Glucose 116 mg/dL (65-110); Potassium 4.2 mmol/L (3.4-5.0); Sodium 140 mmol/L (137-145)
== END 2022-01-26 09:30 | disposition home or self-care (01) ==
LOC: ANHLAB 09:31
PROVIDERS: PCP Family Medicine; Visit Provider Internal Medicine Hematology & Oncology
DX: C34.12 Malignant neoplasm of upper lobe, left bronchus or lung (principal)
CPT/HCPCS: 36415; 80047; 80053; 85025

== ENCOUNTER 2022-01-29 09:37 | Outpatient (CLI) | payer MEDICARE, OTHER, SELFPAY ==
[2022-01-29 19:08] LABS: Cholesterol 196 mg/dL (0-200); HDL Direct 58 mg/dL; Triglycerides 171 mg/dL (<150)
[2022-01-29 19:19] LABS: LDL Cholesterol Direct 89 mg/dL
[2022-01-29 19:28] LABS: Hemoglobin A1C 5.6 % (<5.7)
== END 2022-01-29 09:38 | disposition home or self-care (01) ==
LOC: ANHGOSHLAB 09:45
PROVIDERS: PCP Family Medicine; Visit Provider Nurse Practitioner Family
DX: E55.9 Vitamin D deficiency, unspecified (principal); E78.5 Hyperlipidemia, unspecified; R73.01 Impaired fasting glucose
CPT/HCPCS: 36415; 80061; 82306; 83036

== ENCOUNTER 2022-04-27 08:03 | Outpatient (CLI) | payer MEDICARE, OTHER, SELFPAY ==
--- NOTE | ~2022-04-27 | CT_ITS ---
EXAMINATION: CT diagnostic chest w con DATE: 04/27/2022 08:34 INDICATION: Malignant left upper lobe neoplasm TECHNIQUE: Computed tomography (CT) of the chest was performed with 75 CC Omnipaque 350 intravenous c ontrast. Automated exposure control and iterative reconstruction technique were employed. Exam dose: 193.31 mGy-cm total exam DLP. COMPARISON: 01/19/2022 CT chest FINDINGS: Normal size and homogeneous enhancement of the thyroid gland. No hilar or mediastinal mass lesion or lymphadenopathy. Thoracic aortic calcification. The ascending aorta measures up to 4 cm miki meter, the descending thoracic aorta 3.3 cm diameter. Normal heart size. No pericardial or pleural effusion. Fat-containing right foramen of Bochdalek hernia. Moderate emphysematous changes of the lungs. Stable right apical multifocal scarring. Resolution of previously reported new 4.6 mm opacity at mid posterior right apical area and 3 to 4 mm stellate opacity in the lateral right upper lobe since 2021. No new or enlarging mass density since 01/19/2022. CT follow-up in 6 months is recommended. Abdominal aortic and bilateral iliac stent beginning superiorly at the level of the superior mesenter ic artery. The abdominal aorta measures up to approximately 3.5 cm maximal diameter. 2.5 mm probable right renal nonobstructing calculus. Probable 7 mm left renal cyst Normal morphology of the adrenal glands. Probable hemangioma of right side of L2 vertebral body. IMPRESSION: Stable and resolved right apical and right upper lobe opacities since 01/19/2022. CT follo w-up in 6 months is recommended. Emphysema, right apical stable probable scarring No active cardiopulmonary disease Thoracic and abdominal aortic aneurysm, aortobiiliac endovascular stent Reviewed, dictated and finalized at [facility]. Reviewed, dictated and finalized at [facility]. [employer] IMPRESSION: Stable and resolved right apical and right upper lobe opacities si nce 01/19/2022. CT follow-up in 6 months is recommended. Emphysema, right apical stable probable scarring No active cardiopulmonary disease Thoracic and abdominal aortic aneurysm, aortobiiliac endovascular stent
[2022-04-27 08:25] LABS: Estimated Glomerular Filt Rate 44
== END 2022-04-27 08:04 | disposition home or self-care (01) ==
PROVIDERS: PCP Family Medicine; Visit Provider Internal Medicine Hematology & Oncology
DX: C34.12 Malignant neoplasm of upper lobe, left bronchus or lung (principal); J43.9 Emphysema, unspecified; I71.40 Abdominal aortic aneurysm, without rupture, unspecified; I71.20 Thoracic aortic aneurysm, without rupture, unspecified
CPT/HCPCS: 71260; Q9967

== ENCOUNTER 2022-05-04 11:14 | Outpatient (CLI) | payer MEDICARE, OTHER, SELFPAY ==
[2022-05-04 11:25] LABS: Basophils Percent Auto 0.5 % (0.2-1.2); Eosinophils Absolute Auto 0.1 K/mm3 (0-0.3); Eosinophils Percent Auto 1.2 % (0-4.4); Hematocrit 48.1 % (37.0-47.0); Hemoglobin 15.5 g/dL (12.0-15.0); Immature Granulocyte Absolute 0.02 K/mm3 (0.00-0.031); Immature Granulocyte Percent A 0.3 % (0-0.5); Lymphocytes Absolute Auto 1.93 K/mm3 (0.9-3.2); Mean Corpuscular HGB Conc 32.2 g/dl (32-36); Mean Corpuscular Volume 93.2 fl (80-100); Mean Platelet Volume 10.2 fl (7.4-10.4); Monocytes Absolute Auto 0.5 K/mm3 (0.1-0.6); Monocytes Percent Auto 6.2 % (2.6-8.5); Neutrophils Absolute Auto 4.9 K/mm3 (1.3-6.7); Neutrophils Percent Auto 65.8 % (45.5-73.1); Platelet Count Result 169 k/mm3 (150-375); Red Blood Count 5.16 M/mm3 (4.2-5.4); Red Cell Distribution Width 13.6 % (11.5-14.5); White Blood Count 7.4 K/mm3 (4.5-10.0)
[2022-05-04 11:30] LABS: Blood Urea Nitrogen 19 mg/dL (8-26); Carbon Dioxide 25 mmol/L (22-30); Chloride 106 mmol/L (98-109); Estimated Glomerular Filt Rate > 60; Glucose 101 mg/dL (70-105); Ionized Calcium (POC) 1.13 mmol/L (1.11-1.31); Potassium 4.3 mmol/L (3.5-4.9); Sodium 142 mmol/L (138-146)
[2022-05-04 15:14] LABS: Alanine Aminotransferase 25 U/L (6-35); Albumin Level 4.4 g/dL (3.5-5.1); Alkaline Phosphatase 90 U/L (38-126); Anion Gap 6 mmol/L (8-16); Aspartate Amino Transferase 25 U/L (14-36); Bilirubin,Total 0.7 mg/dL (0.2-1.3); Blood Urea Nitrogen 19 mg/dL (7-17); Calcium 9.1 mg/dL (8.4-10.2); Carbon Dioxide 27 mmol/L (22-30); Chloride 108 mmol/L (98-107); Estimated Glomerular Filt Rate > 60; Glucose 102 mg/dL (65-110); Potassium 4.3 mmol/L (3.4-5.0); Sodium 141 mmol/L (137-145)
== END 2022-05-04 11:15 | disposition home or self-care (01) ==
LOC: ANHLAB 11:15
PROVIDERS: PCP Family Medicine; Visit Provider Internal Medicine Hematology & Oncology
DX: C34.12 Malignant neoplasm of upper lobe, left bronchus or lung (principal)
CPT/HCPCS: 36415; 80047; 80053; 85025

== ENCOUNTER 2022-05-29 11:14 | Outpatient (CLI) | payer MEDICARE, OTHER, SELFPAY ==
[2022-05-29 11:51] LABS: Add Urine Microscopic? YES; Appearance Urine Clear (Clear); Bilirubin Urine Negative (Negative); Blood Urine 1+ (Negative); Color Urine Yellow (Yellow); Glucose Urine UA Negative (Negative); Ketones Urine Negative (Negative); Leukocyte Esterase Ur Trace LEU/UL (Negative); Nitrate Urine Negative (Negative); Protein Urine Negative (Negative); Urobilinogen Urine 0.2 mg/dL (<2.0); pH Urine 5.5 (5.0-9.0)
[2022-05-29 12:07] LABS: Bacteria Urine Trace /hpf; Mucus Urine Rare /lpf; RBC Urine 0-2 /hpf (0-2); Squamous Epithelial Cell Urine Moderate /hpf (Few)
== END 2022-05-29 11:15 | disposition home or self-care (01) ==
PROVIDERS: PCP Family Medicine; Visit Provider Nurse Practitioner Family
DX: R39.9 Unspecified symptoms and signs involving the genitourinary system (principal)
CPT/HCPCS: 81001; 87077; 87086; 87186

== ENCOUNTER 2022-08-23 14:45 | Outpatient (CLI) | payer MEDICARE, OTHER, SELFPAY ==
--- NOTE | ~2022-08-23 | CT_ITS ---
EXAMINATION: CT diagnostic chest w con DATE: 08/23/2022 15:25 INDICATION: Malignant neoplasm of the left upper lobe TECHNIQUE: Transaxial computed tomographic images of the chest were obtained after the administration of 75 cc of Omnipaque 350 intravenous contrast. The dose-length product (DLP) was 200.06 mGy-cm. Ite rative reconstruction was used. COMPARISON: 04/27/2022 FINDINGS: There is moderate emphysema. There are changes of left upper lobectomy. There is a stable 4 mm nodule in the right lung apex. Also seen is a stable area of airspace opacity/scarring in the rig ht lung apex. No pathologically enlarged thoracic lymph nodes are identified. The heart size is kellen l. No pleural effusion or pneumothorax. There is mild thoracic spondylosis. There is a partially imag ed endovascular stent in the infrarenal abdominal aorta. IMPRESSION: 1. Stable 4 mm nodule of the right upper lobe and stable scarring, likely treated malignancy. 2. Moderate emphysema. Reviewed, dictated and finalized at location [facility]. IMPRESSION: 1. Stable 4 mm nodule of the right upper lobe and stable scarring, likely treat ed malignancy. 2. Moderate emphysema.
[2022-08-23 15:22] LABS: Estimated Glomerular Filt Rate 54
== END 2022-08-23 14:46 | disposition home or self-care (01) ==
PROVIDERS: PCP Family Medicine; Visit Provider Internal Medicine Hematology & Oncology
DX: C34.12 Malignant neoplasm of upper lobe, left bronchus or lung (principal); J43.9 Emphysema, unspecified
CPT/HCPCS: 71260; Q9967

== ENCOUNTER 2022-08-30 09:49 | Outpatient (CLI) | payer MEDICARE, OTHER, SELFPAY ==
[2022-08-30 10:04] LABS: Basophils Absolute Auto 0.1 K/mm3 (0.0-0.1); Basophils Percent Auto 0.8 % (0.2-1.2); Eosinophils Absolute Auto 0.1 K/mm3 (0-0.3); Eosinophils Percent Auto 1.3 % (0-4.4); Hematocrit 49.8 % (37.0-47.0); Hemoglobin 16.4 g/dL (12.0-15.0); Immature Granulocyte Absolute 0.01 K/mm3 (0.00-0.031); Immature Granulocyte Percent A 0.1 % (0-0.5); Lymphocytes Absolute Auto 2.39 K/mm3 (0.9-3.2); Lymphocytes Percent Auto 30.4 % (18.3-44.2); Mean Corpuscular HGB Conc 32.9 g/dl (32-36); Mean Corpuscular Hemoglobin 30.7 pg (26-34); Mean Corpuscular Volume 93.3 fl (80-100); Mean Platelet Volume 10.4 fl (7.4-10.4); Monocytes Absolute Auto 0.5 K/mm3 (0.1-0.6); Monocytes Percent Auto 6.6 % (2.6-8.5); Neutrophils Absolute Auto 4.8 K/mm3 (1.3-6.7); Neutrophils Percent Auto 60.8 % (45.5-73.1); Platelet Count Result 178 k/mm3 (150-375); Red Blood Count 5.34 M/mm3 (4.2-5.4); Red Cell Distribution Width 13.5 % (11.5-14.5); White Blood Count 7.9 K/mm3 (4.5-10.0)
[2022-08-30 10:12] LABS: Blood Urea Nitrogen 24 mg/dL (8-26); Carbon Dioxide 26 mmol/L (22-30); Chloride 105 mmol/L (98-109); Estimated Glomerular Filt Rate 48; Glucose 106 mg/dL (70-105); Ionized Calcium (POC) 1.17 mmol/L (1.11-1.31); Potassium 4.3 mmol/L (3.5-4.9); Sodium 141 mmol/L (138-146)
[2022-08-30 12:22] LABS: Alanine Aminotransferase 26 U/L (6-35); Albumin Level 4.7 g/dL (3.5-5.1); Alkaline Phosphatase 86 U/L (38-126); Anion Gap 8 mmol/L (8-16); Aspartate Amino Transferase 25 U/L (14-36); Bilirubin,Total 0.7 mg/dL (0.2-1.3); Blood Urea Nitrogen 23 mg/dL (7-17); Calcium 9.5 mg/dL (8.4-10.2); Carbon Dioxide 25 mmol/L (22-30); Chloride 106 mmol/L (98-107); Estimated Glomerular Filt Rate > 60; Glucose 106 mg/dL (65-110); Potassium 4.4 mmol/L (3.4-5.0); Sodium 139 mmol/L (137-145)
== END 2022-08-30 09:50 | disposition home or self-care (01) ==
LOC: ANHLAB 09:51
PROVIDERS: PCP Family Medicine; Visit Provider Internal Medicine Hematology & Oncology
DX: C34.12 Malignant neoplasm of upper lobe, left bronchus or lung (principal)
CPT/HCPCS: 36415; 80047; 80053; 85025

== ENCOUNTER 2022-09-03 01:50 | Day surgery (SDC) | payer MEDICARE, OTHER, SELFPAY ==
[2022-08-22 08:37] VITALS: BMI 25.0
[2022-09-03 12:23] VITALS: BP 134/97; PULSE 56; RESP 18; TEMP 36.4; O2SAT 98; BMI 24.8
[2022-09-03] MEDS: LACTATED RINGERS 1,000 ML 150 ML IV CONT (12:35)
--- NOTE | 2022-09-03 12:42 | PM.HPGS ---
History of Present Illness History of Present Illness Consent: Risks, benefits, and alternatives have been discussed and questions answered. Patient agrees to proceed with procedure. Chief complaint: hx colon polyps Narrative: Shonda De La Fuente is a 77 year old female Presents for screening colonoscopy. Patient's current weight appetite and bowel movements are normal. Patient denies abdominal pain. She has had no bleeding. Family history noncontributory. Patient reports that in 2011 she had a colon polyp at a different institution, [facility]. Patient presents today for screening colonoscopy. Review of Systems Review of Systems: Review of systems noncontributory. [facility] Past Medical History Medical History Cardiac murmur COPD (chronic obstructive pulmonary disease) Essential (primary) hypertension Insomnia Multiple lung nodules on CT Osteoarthritis Osteopenia Primary adenocarcinoma of upper lobe of left lung Skin cancer 2015 Vaginal delivery x2 Vitamin D deficiency Surgical History Surgical History History of AAA (abdominal aortic aneurysm) repair 07/2017 History of appendectomy (~1959) 1960 History of gastric surgery (~2017) stent placed in stomach 2017 History of lobectomy of lung 08/2017 - left upper lobe Family History Family History Mother Patient's mother is in good health Family history of cardiovascular disease, Onset Age: 83 Father Patient's father is in good health Family history of cardiovascular disease, Onset Age: 85 Family history of lung cancer Sibling Family history of type 2 diabetes mellitus Diabetes mellitus Grandparent Family history unknown, Onset Age: 92 Social History Social History (Updated 08/07/22 @ 11:20 by Shani Barrett MA) Smoking packs per day: 1 Smoking cigarettes per day: 20.0 Years smoked: 60 Smoking pack-years: 60.00 Smoking status: Current every day smoker Tobacco type: cigarettes Second hand tobacco smoke exposure: Yes Additional smoking assessment comments: Patient started smoking last month, if she is unable to sleep she smokes. Alcohol intake: current Alcohol use details: occasional Substance use: current Substance use type: marijuana Other substance usage details: STATES 1/4 OZ/WEEK - SMOKES DAILY Last use: Daily Lack of Transportation: No Lack of Food: Never True Current Housing: I Have Housing Concerned About Future Housing: No Difficulty Paying Gas/Electric Bills: No Difficulty Paying for Meds: No Currently Unemployed: No Education: High School Diploma/GED Difficulty w/ Childcare or Family Care: No Living arrangements: alone Occupation/Education: retired Gender identity (if verbalized by the patient): Female Spiritual care concerns: No Meds Home Medications and Allergies Home Medications Medication Instructions Recorded Confirmed Type aspirin-caffeine 500 mg-32.5 mg 1 tablet PO DAILY PRN Pain 01/29/22 09/03/22 History tablet (Lizandro Back and Body) atorvastatin 40 mg tablet (Lipitor) 40 mg PO DAILY #90 tabs 05/08/22 09/03/22 Rx albuterol sulfate 90 mcg/actuation See Rx Instructions inhalation 05/10/22 09/03/22 Rx aerosol inhaler (Ventolin HFA) Q4-6H PRN Wheezing #18 grams alprazolam 0.5 mg tablet 0.25 mg PO DAILY PRN anxiety #30 05/22/22 09/03/22 Rx tabs lisinopril 40 mg tablet 40 mg PO DAILY #90 tabs 08/07/22 09/03/22 Rx citalopram 10 mg tablet 10 mg PO DAILY #90 tabs 08/09/22 09/03/22 Rx trazodone 50 mg tablet 50 mg PO QHS 08/22/22 09/03/22 History Allergies Allergy/AdvReac Type Severity Reaction Status Date / Time adhesive tape AdvReac Unknown SWELLING, Verified 09/03/22 12:17 REDDNESS Vital Signs Vital Signs - 24 hr 09/03/22 12:23 Temperature
--- NOTE | 2022-09-03 12:54 | WPDANESEPPF ---
Anes - Initial Pre Proc Eval Procedure: Operation Date: 09/03/22 13:30 Proposed Procedures p Colonoscopy - Micheal Crowe MD Date/Time: 09/03/22 12:54 Surgeon: Micheal Crowe MD Pre Op Diagnosis: hx colon polyps Patient Data Age: 77 Gender: F Height: 1.68 m Weight: 69.9 kg Last Vital Signs Temp 97.5 F L 09/03/22 12:23 Pulse 56 L 09/03/22 12:23 Resp 18 09/03/22 12:23 BP 134/97 H 09/03/22 12:23 Pulse Ox 98 09/03/22 12:23 O2 Del Method Room Air 09/03/22 12:23 Allergies Allergy/AdvReac Type Severity Reaction Status Date / Time adhesive tape AdvReac Unknown SWELLING, Verified 09/03/22 12:17 REDDNESS Home Medications Medication Instructions Recorded Confirmed Type aspirin-caffeine 500 mg-32.5 mg 1 tablet PO DAILY PRN Pain 01/29/22 09/03/22 History tablet (Lizandro Back and Body) atorvastatin 40 mg tablet (Lipitor) 40 mg PO DAILY #90 tabs 05/08/22 09/03/22 Rx albuterol sulfate 90 mcg/actuation See Rx Instructions inhalation 05/10/22 09/03/22 Rx aerosol inhaler (Ventolin HFA) Q4-6H PRN Wheezing #18 grams alprazolam 0.5 mg tablet 0.25 mg PO DAILY PRN anxiety #30 05/22/22 09/03/22 Rx tabs lisinopril 40 mg tablet 40 mg PO DAILY #90 tabs 08/07/22 09/03/22 Rx citalopram 10 mg tablet 10 mg PO DAILY #90 tabs 08/09/22 09/03/22 Rx trazodone 50 mg tablet 50 mg PO QHS 08/22/22 09/03/22 History Patient hx anesthesia problems: none Family hx anesthesia problems: none Results Review: All pre-operative results and documents have been reviewed as part of the pre-operative evaluation. [facility] Past Medical History Medical History Cardiac murmur COPD (chronic obstructive pulmonary disease) Essential (primary) hypertension Insomnia Multiple lung nodules on CT Osteoarthritis Osteopenia Primary adenocarcinoma of upper lobe of left lung Skin cancer 2016 Vaginal delivery x2 Vitamin D deficiency Surgical History Surgical History History of AAA (abdominal aortic aneurysm) repair 07/2017 History of appendectomy (~1959) 1960 History of gastric surgery (~2017) stent placed in stomach 2017 History of lobectomy of lung 08/2017 - left upper lobe Family History Family History Mother Patient's mother is in good health Family history of cardiovascular disease, Onset Age: 83 Father Patient's father is in good health Family history of cardiovascular disease, Onset Age: 85 Family history of lung cancer Sibling Family history of type 2 diabetes mellitus Diabetes mellitus Grandparent Family history unknown, Onset Age: 92 Social History Social History (Updated 08/07/22 @ 11:20 by Shani Barrett MA) Smoking packs per day: 1 Smoking cigarettes per day: 20.0 Years smoked: 60 Smoking pack-years: 60.00 Smoking status: Current every day smoker Tobacco type: cigarettes Second hand tobacco smoke exposure: Yes Additional smoking assessment comments: Patient started smoking last month, if she is unable to sleep she smokes. Alcohol intake: current Alcohol use details: occasional Substance use: current Substance use type: marijuana Other substance usage details: STATES 1/4 OZ/WEEK - SMOKES DAILY Last use: Daily Lack of Transportation: No Lack of Food: Never True Current Housing: I Have Housing Concerned About Future Housing: No Difficulty Paying Gas/Electric Bills: No Difficulty Paying for Meds: No Currently Unemployed: No Education: High School Diploma/GED Difficulty w/ Childcare or Family Care: No Living arrangements: alone Occupation/Education: retired Gender identity (if verbalized by the patient): Female Spiritual care concerns: No Anes - Eval Final PreProcedure Day of Procedure 09/03/22 12:54 Patient weight: normal
[2022-09-03 13:43] VITALS: BP 136/71; PULSE 57; RESP 24; O2SAT 99
[2022-09-03 13:53] VITALS: BP 131/70; PULSE 57; RESP 23; O2SAT 100
[2022-09-03 14:05] VITALS: BP 166/93; PULSE 54; RESP 19; O2SAT 100
== END 2022-09-03 14:12 | disposition home or self-care (01) ==
PROVIDERS: PCP Family Medicine; Visit Provider Internal Medicine Gastroenterology
PROC: 0DJD8ZZ Inspection of Lower Intestinal Tract, Via Natural or Artificial Opening Endoscopic (ICD-10-PCS; CPT 45378; principal; 2022-09-03 13:30)
DX: Z12.11 Encounter for screening for malignant neoplasm of colon (principal); D12.0 Benign neoplasm of cecum; D12.5 Benign neoplasm of sigmoid colon; K57.30 Diverticulosis of large intestine without perforation or abscess without bleeding; K64.8 Other hemorrhoids; J44.9 Chronic obstructive pulmonary disease, unspecified; I10 Essential (primary) hypertension; Z79.51 Long term (current) use of inhaled steroids; Z90.2 Acquired absence of lung [part of]; F17.210 Nicotine dependence, cigarettes, uncomplicated; F12.90 Cannabis use, unspecified, uncomplicated
CPT/HCPCS: 45385; 88305; J2704; J7120

== ENCOUNTER 2023-01-06 16:45 | Emergency (ER) | payer MEDICARE, OTHER, SELFPAY ==
[2023-01-06 16:47] VITALS: BP 146/101; PULSE 70; RESP 20; TEMP 36.8; O2SAT 96
--- NOTE | 2023-01-06 17:38 | ED.WOUNDLAC ---
HPI - Wound/Laceration General Chief Complaint: Wound/Laceration Stated Complaint: bug bite Time Seen by Provider: 01/06/23 17:37 Source: patient Mode of arrival: ambulatory Limitations: no limitations History of Present Illness HPI narrative: patient is a very pleasant 78yo female with a past medical history of COPD, heart murmur, HTN, HLD, skin cancer who presents to the ED today ambulatory with a steady gait for evaluation of an area of increasing swelling/redness/itching to left upper arm. patient was bit 2 days ago and the area has gotten worse. denies shortness of breath, fever, chills, decreased sensation to LUE or decreased strength to LUE. Related Data Home Medications Medication Instructions Recorded Confirmed aspirin-caffeine 500 mg-32.5 mg 1 tablet PO DAILY PRN Pain 01/29/22 09/03/22 tablet (Lizandro Back and Body) Allergies Allergy/AdvReac Type Severity Reaction Status Date / Time adhesive tape AdvReac Unknown SWELLING, Verified 01/06/23 16:49 REDDNESS Review of Systems Review of Systems: Review of Systems:? CONST: No fever. no chills. no diaphoresis. C/V:? No chest pain RESP: No cough M/S: No joint pain pain to left upper arm from bite. . SKIN: No rash. area of erythema/swelling/bruising to left upper arm from bite. NEURO: no weakness. All systems reviewed & are unremarkable except as noted in HPI and below PMFSH Past Medical History Medical History Cardiac murmur COPD (chronic obstructive pulmonary disease) Essential (primary) hypertension Insomnia Multiple lung nodules on CT Osteoarthritis Osteopenia Primary adenocarcinoma of upper lobe of left lung Skin cancer 2016 Vaginal delivery x2 Vitamin D deficiency Surgical History Surgical History History of AAA (abdominal aortic aneurysm) repair 07/2017 History of appendectomy (~1959) 1960 History of gastric surgery (~2017) stent placed in stomach 2017 History of lobectomy of lung 08/2017 - left upper lobe Family History Family History Mother Patient's mother is in good health Family history of cardiovascular disease, Onset Age: 83 Father Patient's father is in good health Family history of cardiovascular disease, Onset Age: 85 Family history of lung cancer Sibling Family history of type 2 diabetes mellitus Diabetes mellitus Grandparent Family history unknown, Onset Age: 92 Social History Social History Smoking packs per day: 1 Smoking cigarettes per day: 20.0 Years smoked: 60 Smoking pack-years: 60.00 Smoking status: Current every day smoker Tobacco type: cigarettes Second hand tobacco smoke exposure: Yes Additional smoking assessment comments: Patient started smoking last month, if she is unable to sleep she smokes. Alcohol intake: current Alcohol use details: occasional Substance use: current Substance use type: marijuana Other substance usage details: STATES 1/4 OZ/WEEK - SMOKES DAILY Last use: Daily Lack of Transportation: No Lack of Food: Never True Current Housing: I Have Housing Concerned About Future Housing: No Difficulty Paying Gas/Electric Bills: No Difficulty Paying for Meds: No Currently Unemployed: No Education: High School Diploma/GED Difficulty w/ Childcare or Family Care: No Living arrangements: alone Occupation/Education: retired Gender identity (if verbalized by the patient): Female Spiritual care concerns: No Exam Narrative: EXAMINATION OF ORGAN SYSTEMS/BODY AREAS:? Constitutional: Vital signs per nursing GENERAL:No acute distress, non-toxic appearing.elderly female sitting up on exam chair. HEAD:? Normal with no signs of head trauma. LUNGS:? Nonlabored breathing. HEART:
== END 2023-01-06 18:55 | disposition home or self-care (01) ==
PROVIDERS: Emergency Provider Nurse Practitioner; PCP Family Medicine
DX: S40.862A Insect bite (nonvenomous) of left upper arm, initial encounter (principal); L08.9 Local infection of the skin and subcutaneous tissue, unspecified; I10 Essential (primary) hypertension; J44.9 Chronic obstructive pulmonary disease, unspecified; E78.5 Hyperlipidemia, unspecified; E55.9 Vitamin D deficiency, unspecified; Z85.828 Personal history of other malignant neoplasm of skin; Z85.118 Personal history of other malignant neoplasm of bronchus and lung; Z90.2 Acquired absence of lung [part of]; F17.210 Nicotine dependence, cigarettes, uncomplicated; W57.XXXA Bitten or stung by nonvenomous insect and other nonvenomous arthropods, initial encounter
CPT/HCPCS: 99283

== ENCOUNTER → 2023-02-12 11:30 | Outpatient (CLI) | payer MEDICARE, OTHER, SELFPAY ==
--- NOTE | ~2023-02-12 | XR_ITS ---
EXAMINATION: XR hip BI 2V w AP pelvis DATE: 02/12/2023 12:03 INDICATION: Low back pain. TECHNIQUE: An anteroposterior view of the pelvis on 2 radiographs and 2 views of each hip were obtain ed. COMPARISON: None. FINDINGS: There is lumbar levocurvature and severe spondylosis. No fracture. The hip joint spaces are normal. There is a stent graft in abdominal aorta and the common iliac arteries. IMPRESSION: 1. Normal hip joints. Reviewed, dictated and finalized at location [facility]. IMPRESSION: 1. Normal hip joints.
--- NOTE | ~2023-02-12 | XR_ITS ---
EXAMINATION: XR lumbar spine 2-3V DATE: 02/12/2023 12:03 INDICATION: Low back pain. TECHNIQUE: 3 views of lumbar spine were obtained. COMPARISON: PET/CT 04/04/2021 FINDINGS: There is 10 degrees dextroscoliosis of thoracolumbar spine. Vertebral body heights are norm al. There is moderately decreased disc height at L3-L4 and severely decreased disc height at L4-L5 an d L5-S1 with endplate remodeling. There is multilevel severe facet joint osteoarthritis. There is a s tent graft in abdominal aorta and the common iliac arteries. IMPRESSION: 1. Severe lumbar spondylosis. 2. Thoracolumbar dextroscoliosis. Reviewed, dictated and finalized at location [facility].
== END ==
PROVIDERS: PCP Family Medicine; Visit Provider Family Medicine
DX: M54.50 Low back pain, unspecified (principal); G89.29 Other chronic pain; M25.551 Pain in right hip; M25.552 Pain in left hip; M47.896 Other spondylosis, lumbar region
CPT/HCPCS: 72100; 73521

== ENCOUNTER 2023-03-06 13:44 | Outpatient (CLI) | payer MEDICARE, OTHER, SELFPAY ==
--- NOTE | ~2023-03-06 | CT_ITS ---
EXAMINATION:CT diagnostic chest w con DATE: 03/06/2023 14:41 INDICATION: Malignant neoplasm of upper lobe of left lung. TECHNIQUE: Computed tomography (CT) of the chest was performed with 75 mL Omnipaque 350 intravenous c ontrast. Automated exposure control and iterative reconstruction technique were employed. The dose-le ngth product (DLP) was 167.30 mGy-cm. COMPARISON: Chest CT 08/23/2022, 03/28/21, 07/27/19 FINDINGS: There is moderate emphysema. There is mild atelectasis bilaterally. There are changes of le ft upper lobectomy. There is a stable 5 mm nodule in right upper lobe. There is a stable 4 mm nodule in right upper lobe, likely benign. No pleural effusion. The heart size is normal. There are coronary artery calcifications. No pericardial effusion. There is a stent graft in abdominal aorta. There is severe cervical and thoracic spondylosis. IMPRESSION: 1. 5 mm nodule in right upper lobe without change from 08/23/2022 and improved from 03/28/2021, likely t reated primary malignancy or metastatic disease. 2. Moderate emphysema. 3. Left upper lobectomy. Reviewed, dictated and finalized at location [facility]. IMPRESSION: 1. 5 mm nodule in right upper lobe without change from 08/23/2022 and improved fr om 03/28/2021, likely treated primary malignancy or metastatic disease. 2. Moderate emphysema. 3. Left upper lobectomy.
[2023-03-06 14:29] LABS: Estimated Glomerular Filt Rate 54
== END 2023-03-06 13:45 | disposition home or self-care (01) ==
LOC: ANHIMG 13:45
PROVIDERS: PCP Family Medicine; Visit Provider Internal Medicine Hematology & Oncology
DX: C34.12 Malignant neoplasm of upper lobe, left bronchus or lung (principal); J43.9 Emphysema, unspecified
CPT/HCPCS: 71260; Q9967

== ENCOUNTER 2023-03-13 10:34 | Outpatient (CLI) | payer MEDICARE, OTHER, SELFPAY ==
[2023-03-13 10:46] LABS: Basophils Absolute Auto 0.1 K/mm3 (0.0-0.1); Basophils Percent Auto 0.9 % (0.2-1.2); Eosinophils Absolute Auto 0.1 K/mm3 (0-0.3); Eosinophils Percent Auto 1.8 % (0-4.4); Hematocrit 45.3 % (37.0-47.0); Immature Granulocyte Absolute 0.02 K/mm3 (0.00-0.031); Immature Granulocyte Percent A 0.3 % (0-0.5); Lymphocytes Absolute Auto 2.34 K/mm3 (0.9-3.2); Mean Corpuscular HGB Conc 33.1 g/dl (32-36); Mean Corpuscular Hemoglobin 30.9 pg (26-34); Mean Corpuscular Volume 93.2 fl (80-100); Mean Platelet Volume 10.4 fl (7.4-10.4); Monocytes Absolute Auto 0.5 K/mm3 (0.1-0.6); Monocytes Percent Auto 6.4 % (2.6-8.5); Neutrophils Absolute Auto 4.7 K/mm3 (1.3-6.7); Neutrophils Percent Auto 60.6 % (45.5-73.1); Platelet Count Result 178 k/mm3 (150-375); Red Blood Count 4.86 M/mm3 (4.2-5.4); Red Cell Distribution Width 13.8 % (11.5-14.5); White Blood Count 7.8 K/mm3 (4.5-10.0)
[2023-03-13 10:51] LABS: Blood Urea Nitrogen 22 mg/dL (8-26); Carbon Dioxide 25 mmol/L (22-30); Chloride 105 mmol/L (98-109); Estimated Glomerular Filt Rate 48; Glucose 103 mg/dL (70-105); Ionized Calcium (POC) 1.21 mmol/L (1.11-1.31); Potassium 4.4 mmol/L (3.5-4.9); Sodium 140 mmol/L (138-146)
[2023-03-13 12:16] LABS: Alanine Aminotransferase 20 U/L (6-35); Albumin Level 4.3 g/dL (3.5-5.1); Alkaline Phosphatase 73 U/L (38-126); Anion Gap 7 mmol/L (8-16); Aspartate Amino Transferase 23 U/L (14-36); Bilirubin,Total 0.6 mg/dL (0.2-1.3); Blood Urea Nitrogen 22 mg/dL (7-17); Calcium 9.5 mg/dL (8.4-10.2); Carbon Dioxide 23 mmol/L (22-30); Chloride 107 mmol/L (98-107); Estimated Glomerular Filt Rate 54; Glucose 103 mg/dL (65-110); Potassium 4.4 mmol/L (3.4-5.0); Sodium 137 mmol/L (137-145)
== END 2023-03-13 10:35 | disposition home or self-care (01) ==
LOC: ANHLAB 10:37
PROVIDERS: PCP Family Medicine; Visit Provider Internal Medicine Hematology & Oncology
DX: C34.12 Malignant neoplasm of upper lobe, left bronchus or lung (principal)
CPT/HCPCS: 36415; 80047; 80053; 85025

== ENCOUNTER 2023-07-13 07:25 | Outpatient (CLI) | payer MEDICARE, OTHER, SELFPAY ==
--- NOTE | ~2023-07-13 | MR_ITS ---
EXAMINATION: MR lumbar spine wo con DATE: 07/13/2023 08:08 INDICATION: M47.816 - Spondylosis without myelopathy or radiculopathy... . TECHNIQUE: Magnetic resonance imaging (MRI) of the lumbar spine was performed without intravenous con trast. Sequences included sagittal T2-weighted FSE, sagittal T2-weighted FS FSE, sagittal T1-weighted FSE, and axial T2-weighted FSE. COMPARISON: X-ray L-spine 02/12/2023 FINDINGS: An aortic endograft creates considerable artifact which obscures the anterior portions of t he lumbar vertebral bodies. Simple left renal cyst. Mild lumbar scoliosis. Multiple vertebral body he mangiomas. The last fully formed and hydrated disc is designated L5-S1. The partially visualized neil ow signal is benign and homogenous. Conus terminates at L1. Multilevel loss of disc height and hydrat ion, severe at L4-5 and L5-S1. The following disc levels are specifically discussed: T11-T12: The disc does not extend beyond the endplate margin. There is mild bilateral facet joint ost eoarthritis. There is no neural foraminal stenosis. There is no central canal stenosis. T12-L1: Mild diffuse bulge. There is mild bilateral facet joint osteoarthritis. There is no neural fo raminal stenosis. There is mild central canal stenosis. L1-L2: Mild diffuse bulge. There is severe bilateral facet joint osteoarthritis. There is no neural f oraminal stenosis. There is mild central canal stenosis. L2-L3: Mild diffuse bulge. There is severe bilateral facet joint osteoarthritis. There is no neural f oraminal stenosis. There is mild central canal stenosis. L3-L4: Moderate diffuse bulge. There is severe bilateral facet joint osteoarthritis. There is mild bi lateral neural foraminal stenosis. There is moderate central canal stenosis. L4-L5: Mild diffuse bulge. There is severe right and moderate left bilateral facet joint osteoarthrit is. There is moderate right and mild left neural foraminal stenosis. There is mild central canal sten osis. L5-S1: Mild diffuse bulge. There is mild bilateral facet joint osteoarthritis. There is moderate bila teral neural foraminal stenosis. There is no central canal stenosis. IMPRESSION: Severe degenerative disc disease at L4-5 and L5-S1. Moderate central canal stenosis at L3-4. Moderate right L4-5 and moderate bilateral L5-S1 neural foraminal stenosis. Multilevel severe facet arthropathy. Reviewed, dictated and finalized at location [facility]. [employer]
== END 2023-07-13 07:26 | disposition home or self-care (01) ==
LOC: ANHIMG 07:26
PROVIDERS: PCP Family Medicine; Visit Provider Family Medicine
DX: M47.816 Spondylosis without myelopathy or radiculopathy, lumbar region (principal); M51.37 Other intervertebral disc degeneration, lumbosacral region; M51.36 Other intervertebral disc degeneration, lumbar region
CPT/HCPCS: 72148

== ENCOUNTER 2023-08-26 13:07 | Outpatient (CLI) | payer MEDICARE, OTHER, SELFPAY ==
--- NOTE | ~2023-08-26 | CT_ITS ---
Clinical Indication: Lung cancer CT Scan of the Chest with Contrast: Technique: Contiguous sections were acquired throughout the chest after intravenous administration of 75 cc of Omnipaque 350. Dose reduction technique was used on this scan by utilizing automated exposu re control and iterative reconstruction technique. The dose-length product (DLP) was 164.06 mGy-cm. COMPARISON: 03/06/2023 Findings: There is no evidence of any significant mediastinal, hilar or axillary lymphadenopathy. There is no f illing defect in the pulmonary arterial tree to suggest pulmonary embolus. There is no evidence of ao rtic dissection or aneurysm. There is no evidence of pleural or pericardial effusion. There is probable moderate emphysema and right upper lobe scarring. Status post left upper lobectomy. Images through the upper abdomen reveal partially imaged abdominal aortic stent graft. Impression: No evidence of active malignancy or metastatic disease. Status post left upper lobectomy. Moderate emphysema and focal right upper lobe scarring. Reviewed, dictated and finalized at [facility]. Impression: No evidence of active malignancy or metastatic disease. Status post left upper lobectomy. Moderate emphysema and focal right upper lobe scarring.
[2023-08-26 13:54] LABS: Estimated Glomerular Filt Rate 54
== END 2023-08-26 13:08 | disposition home or self-care (01) ==
LOC: ANHIMG 13:12
PROVIDERS: PCP Family Medicine; Visit Provider Internal Medicine Hematology & Oncology
DX: C34.12 Malignant neoplasm of upper lobe, left bronchus or lung (principal); J43.9 Emphysema, unspecified
CPT/HCPCS: 71260; Q9967

== ENCOUNTER 2023-09-03 11:11 | Outpatient (CLI) | payer MEDICARE, OTHER, SELFPAY ==
[2023-09-03 11:25] LABS: Basophils Absolute Auto 0.1 K/mm3 (0.0-0.1); Basophils Percent Auto 0.7 % (0.2-1.2); Eosinophils Absolute Auto 0.1 K/mm3 (0-0.3); Eosinophils Percent Auto 1.2 % (0-4.4); Hematocrit 46.5 % (37.0-47.0); Hemoglobin 15.4 g/dL (12.0-15.0); Immature Granulocyte Absolute 0.01 K/mm3 (0.00-0.031); Immature Granulocyte Percent A 0.1 % (0-0.5); Lymphocytes Absolute Auto 1.92 K/mm3 (0.9-3.2); Lymphocytes Percent Auto 27.9 % (18.3-44.2); Mean Corpuscular HGB Conc 33.1 g/dl (32-36); Mean Corpuscular Hemoglobin 30.6 pg (26-34); Mean Corpuscular Volume 92.4 fl (80-100); Mean Platelet Volume 10.1 fl (7.4-10.4); Monocytes Absolute Auto 0.4 K/mm3 (0.1-0.6); Neutrophils Absolute Auto 4.4 K/mm3 (1.3-6.7); Neutrophils Percent Auto 64.1 % (45.5-73.1); Platelet Count Result 174 k/mm3 (150-375); Red Blood Count 5.03 M/mm3 (4.2-5.4); Red Cell Distribution Width 13.6 % (11.5-14.5); White Blood Count 6.9 K/mm3 (4.5-10.0)
[2023-09-03 11:28] LABS: Blood Urea Nitrogen 17 mg/dL (8-26); Carbon Dioxide 25 mmol/L (22-30); Chloride 105 mmol/L (98-109); Estimated Glomerular Filt Rate 54; Glucose 112 mg/dL (70-105); Ionized Calcium (POC) 1.18 mmol/L (1.11-1.31); Potassium 4.1 mmol/L (3.5-4.9); Sodium 142 mmol/L (138-146)
== END 2023-09-03 11:12 | disposition home or self-care (01) ==
PROVIDERS: PCP Family Medicine; Visit Provider Internal Medicine Hematology & Oncology
DX: C34.12 Malignant neoplasm of upper lobe, left bronchus or lung (principal)
CPT/HCPCS: 36415; 80047; 85025

== ENCOUNTER 2024-01-21 10:58 | Outpatient (CLI) | payer MEDICARE, OTHER, SELFPAY ==
[2024-01-21 11:18] LABS: Basophils Absolute Auto 0.1 K/mm3 (0.0-0.1); Eosinophils Absolute Auto 0.1 K/mm3 (0-0.3); Hematocrit 48.4 % (37.0-47.0); Hemoglobin 15.8 g/dL (12.0-15.0); Immature Granulocyte Absolute 0.01 K/mm3 (0.00-0.031); Immature Granulocyte Percent A 0.2 % (0-0.5); Lymphocytes Absolute Auto 1.53 K/mm3 (0.9-3.2); Lymphocytes Percent Auto 24.6 % (18.3-44.2); Mean Corpuscular HGB Conc 32.6 g/dl (32-36); Mean Corpuscular Hemoglobin 30.6 pg (26-34); Mean Corpuscular Volume 93.8 fl (80-100); Mean Platelet Volume 10.2 fl (7.4-10.4); Monocytes Absolute Auto 0.4 K/mm3 (0.1-0.6); Monocytes Percent Auto 6.1 % (2.6-8.5); Neutrophils Absolute Auto 4.2 K/mm3 (1.3-6.7); Neutrophils Percent Auto 67.1 % (45.5-73.1); Platelet Count Result 164 k/mm3 (150-375); Red Blood Count 5.16 M/mm3 (4.2-5.4); Red Cell Distribution Width 13.6 % (11.5-14.5); White Blood Count 6.2 K/mm3 (4.5-10.0)
[2024-01-21 11:46] LABS: LDL Cholesterol Direct 89 mg/dL
[2024-01-21 11:50] LABS: Albumin Level 4.6 g/dL (3.5-5.1); Carbon Dioxide 26 mmol/L (22-30); Cholesterol 190 mg/dL (0-200)
[2024-01-21 12:06] LABS: Alanine Aminotransferase 19 U/L (6-35); Alkaline Phosphatase 77 U/L (38-126); Anion Gap 8 mmol/L (4-12); Aspartate Amino Transferase 27 U/L (14-36); Bilirubin,Total 0.6 mg/dL (0.2-1.3); Blood Urea Nitrogen 17 mg/dL (7-17); Calcium 9.2 mg/dL (8.4-10.2); Chloride 105 mmol/L (98-107); Estimated Glomerular Filt Rate > 60; Glucose 100 mg/dL (65-110); HDL Direct 61 mg/dL; Potassium 4.2 mmol/L (3.4-5.0); Sodium 139 mmol/L (137-145); Triglycerides 131 mg/dL (<150)
[2024-01-21 12:27] LABS: Vitamin D 25 Hydroxy 34.2 ng/mL
[2024-01-21 13:11] LABS: Hemoglobin A1C 5.5 % (<5.7)
== END 2024-01-21 10:59 | disposition home or self-care (01) ==
LOC: ANHLAB 11:01
PROVIDERS: PCP Family Medicine; Visit Provider Family Medicine
DX: E78.5 Hyperlipidemia, unspecified (principal); I10 Essential (primary) hypertension; Z79.899 Other long term (current) drug therapy; E55.9 Vitamin D deficiency, unspecified; R73.9 Hyperglycemia, unspecified; G47.00 Insomnia, unspecified; E53.8 Deficiency of other specified B group vitamins
CPT/HCPCS: 36415; 80053; 80061; 82306; 82607; 83036; 85025

== ENCOUNTER 2024-02-18 08:38 | Outpatient (CLI) | payer MEDICARE, OTHER, SELFPAY ==
--- NOTE | 2024-02-18 08:53 | ECHO_ITS ---
Patient Info Name: Shonda De La Fuente Age: 79 years : 1945 Gender: Female Ht: 66 in Wt: 145 lbs BSA: 1.76 m2 HR: 49 bpm BP: 160 / 87 mmHg Technical Quality: Good Exam Date: 02/18/2024 9:02 AM Exam Location: Echo Lab Patient Status: Outpatient Admit Date: 02/18/2024 Staff Ordering Physician: Epifanio Ley MD Teacher Industrial Arts: Gloria Palafox RDCS Attending Provider: Epifanio Ley MD Exam Type: CA echo doppler color flow Study Info Indications R01.1 - Cardiac murmur, unspecified Complete two-dimensional, color flow and Doppler transthoracic echocardiogram is performed. Strain analysis performed. Summary 1. Complete two-dimensional, color flow and Doppler transthoracic echocardiogram is performed. 2. Left ventricular chamber dimension is normal. 3. Left ventricular systolic function is normal, estimated at 65-70%. 4. There is mild concentric increased left ventricular wall thickness. 5. The left ventricular diastolic function is abnormal. 6. E/e' 13 is mildly elevated. 7. Global longitudinal strain is normal at -19.7%. 8. Left atrial chamber dimension is moderately enlarged. 9. Right atrial chamber dimension is moderately enlarged. 10. There is moderate aortic valve sclerosis. 11. There is trace mitral valve regurgitation. 12. There is trace tricuspid valve regurgitation. 13. No pulmonary hypertension, estimated pulmonary arterial systolic pressure is 36 mmHg. Left Ventricle E/e' 13 is mildly elevated. Global longitudinal strain is normal at -19.7%. Left ventricular chamber dimension is normal. Left ventricular systolic function is normal, estimated at 65-70%. There is mild concentric increased left ventricular wall thickness. The left ventricular diastolic function is abnormal. Right Ventricle Right ventricular systolic function is normal and with normal TAPSE 3.3 cm. Right ventricular chamber dimension is normal. Left Atria Left atrial chamber dimension is moderately enlarged. Right Atria Right atrial chamber dimension is moderately enlarged. Aortic Valve The aortic valve is trileaflet. There is moderate aortic valve sclerosis. There is no aortic valve stenosis. There is no aortic valve regurgitation. Pulmonic Valve There is no pulmonic regurgitation. Mitral Valve There is no mitral valve stenosis. There is trace mitral valve regurgitation. Tricuspid Valve There is trace tricuspid valve regurgitation. No pulmonary hypertension, estimated pulmonary arterial systolic pressure is 36 mmHg. Pericardium/Pleural There is no pericardial effusion. Inferior Vena Cava Normal inferior vena cava with >50% collapse upon inspiration consistent with normal right atrial pressure, 5 mmHg. Aorta The aortic root size at the sinus of Valsalva is normal. Left Ventricular Outflow Tract Name Value Normal LVOT 2D LVOT Diameter 1.9 cm LVOT Doppler LVOT Peak Gradient 10 mmHg LVOT Mean Gradient 4 mmHg LVOT VTI 32 cm LVOT VTI/AV VTI Ratio 1.0 LVOT Stroke Volume 90 ml LVOT CO 4.4 l/min LVOT CI
== END 2024-02-18 08:39 | disposition home or self-care (01) ==
PROVIDERS: PCP Family Medicine; Visit Provider Family Medicine
DX: R01.1 Cardiac murmur, unspecified (principal); I51.89 Other ill-defined heart diseases; I35.8 Other nonrheumatic aortic valve disorders; C34.12 Malignant neoplasm of upper lobe, left bronchus or lung; R06.00 Dyspnea, unspecified
CPT/HCPCS: 93306

== ENCOUNTER 2024-02-27 13:38 | Outpatient (CLI) | payer MEDICARE, OTHER, SELFPAY ==
--- NOTE | ~2024-02-27 | CT_ITS ---
Clinical Indication: Lung cancer CT Scan of the Chest with Contrast: Technique: Contiguous sections were acquired throughout the chest after intravenous administration of 75 cc of Omnipaque 350. Dose reduction technique was used on this scan by utilizing automated exposu re control and iterative reconstruction technique. The dose-length product (DLP) was 154.48 mGy-cm. COMPARISON: 08/26/2023 Findings: There is no evidence of any significant mediastinal, hilar or axillary lymphadenopathy. There is no f illing defect in the pulmonary arterial tree to suggest pulmonary embolus. There is no evidence of ao rtic dissection or aneurysm. There are extensive atherosclerotic calcifications of the thoracic aorta . There is no evidence of pleural or pericardial effusion. There is right upper lobe emphysema. There is stable mild interstitial opacity right lung apex. Statu s post left upper lobectomy. Images through the upper abdomen reveal partially imaged abdominal aortic stent graft. Impression: No evidence of active malignancy or metastatic disease. Status post left upper lobectomy. Right upper lobe emphysema with stable interstitial change at right lung apex. Reviewed, dictated and finalized at location . Impression: No evidence of active malignancy or metastatic disease. Status post left upper lobectomy. Right upper lobe emphysema with stable interstitial change at right lung apex.
[2024-02-27 14:23] LABS: Estimated Glomerular Filt Rate > 60
== END 2024-02-27 13:39 | disposition home or self-care (01) ==
PROVIDERS: PCP Family Medicine; Visit Provider Internal Medicine Hematology & Oncology
DX: C34.12 Malignant neoplasm of upper lobe, left bronchus or lung (principal); J43.9 Emphysema, unspecified
CPT/HCPCS: 71260; Q9967

== ENCOUNTER 2024-03-05 11:17 | Outpatient (CLI) | payer MEDICARE, OTHER, SELFPAY ==
[2024-03-05 11:38] LABS: Basophils Percent Auto 0.6 % (0.2-1.2); Eosinophils Absolute Auto 0.1 K/mm3 (0-0.3); Eosinophils Percent Auto 1.2 % (0-4.4); Hematocrit 46.1 % (37.0-47.0); Hemoglobin 15.3 g/dL (12.0-15.0); Immature Granulocyte Absolute 0.02 K/mm3 (0.00-0.031); Immature Granulocyte Percent A 0.3 % (0-0.5); Lymphocytes Absolute Auto 2.17 K/mm3 (0.9-3.2); Lymphocytes Percent Auto 33.8 % (18.3-44.2); Mean Corpuscular HGB Conc 33.2 g/dl (32-36); Mean Corpuscular Hemoglobin 30.7 pg (26-34); Mean Corpuscular Volume 92.6 fl (80-100); Mean Platelet Volume 10.4 fl (7.4-10.4); Monocytes Absolute Auto 0.4 K/mm3 (0.1-0.6); Monocytes Percent Auto 6.2 % (2.6-8.5); Neutrophils Absolute Auto 3.7 K/mm3 (1.3-6.7); Neutrophils Percent Auto 57.9 % (45.5-73.1); Platelet Count Result 172 k/mm3 (150-375); Red Blood Count 4.98 M/mm3 (4.2-5.4); Red Cell Distribution Width 13.6 % (11.5-14.5); White Blood Count 6.4 K/mm3 (4.5-10.0)
[2024-03-05 11:43] LABS: Blood Urea Nitrogen 20 mg/dL (8-26); Carbon Dioxide 24 mmol/L (22-30); Chloride 106 mmol/L (98-109); Estimated Glomerular Filt Rate > 60; Glucose 101 mg/dL (70-105); Ionized Calcium (POC) 1.18 mmol/L (1.11-1.31); Sodium 141 mmol/L (138-146)
[2024-03-05 12:36] LABS: Alanine Aminotransferase 15 U/L (6-35); Albumin Level 4.5 g/dL (3.5-5.1); Alkaline Phosphatase 77 U/L (38-126); Anion Gap 6 mmol/L (4-12); Aspartate Amino Transferase 24 U/L (14-36); Bilirubin,Total 0.6 mg/dL (0.2-1.3); Blood Urea Nitrogen 21 mg/dL (7-17); Calcium 9.3 mg/dL (8.4-10.2); Carbon Dioxide 25 mmol/L (22-30); Chloride 108 mmol/L (98-107); Estimated Glomerular Filt Rate > 60; Glucose 105 mg/dL (65-110); Sodium 139 mmol/L (137-145)
== END 2024-03-05 11:18 | disposition home or self-care (01) ==
PROVIDERS: PCP Family Medicine; Visit Provider Internal Medicine Hematology & Oncology
DX: C34.12 Malignant neoplasm of upper lobe, left bronchus or lung (principal)
CPT/HCPCS: 36415; 80047; 80053; 85025

== ENCOUNTER 2024-08-17 09:21 | Outpatient (CLI) | payer MEDICARE, SELFPAY ==
--- OUTSIDE RECORDS SUMMARY | 2024-08-17 10:03 | XMS_ITS ---
Author Organization [facility] Address [address] [place] [address] Care Team Providers Care Design Leader Name Role Phone Benjamin Ley MD Primary Care Provider Active Problems Problem Noted Date Diagnosed Date Abdominal aortic aneurysm (AAA) without rupture 06/20/2017 Malignant neoplasm of upper lobe of left lung Current Treatment and Therapy Plans No current plan information found. Past Treatment and Therapy Plans No past plan information found. Lifetime Dose Tracking * Chemical Lifetime Dose Automatic Entry Manual Entr y Effective Dose 37.9 mSv 37.9 mSv 0 mSv Total DLP 2,123 DLP 2,123 DLP 0 DLP CTDIvol Max 45.4 mGy 45.4 mGy 0 mGy CTDIvol Min 27.5 mGy 27.5 mGy 0 mGy Treatment Summaries Malignant neoplasm of upper lobe of left lung (CMS/HCC)* Lung Cancer Survivorship Care Plan Provided by [facility] on 08/26/18 General Information Patient Name: Shonda De La Fuente Patient : 1945 Care Team Medical Oncologist: Dr. Wyatt Perez - [phone] Surgeon: Dr. Dickson Sanford - [phone] Thoracic Surgeon: Dr. Dickson Sanford Radiation Oncologist: N/A Primary Care Physician: Faby Alston MD, Cancer Diagnosis: Lung Cancer. Adenocarcinoma of left lung. Pathologic stage: pT1b N0. Treatment Summary Chemotherapy N/A Radiation N/A Surgery Left Upper Lobectomy Date: 08/22/17 Persistent symptoms or side effects at completion of treatment: no Types: Potential late effects of treatment(s): Surgical Treatment: These are some side effects that may be a result of your lung surgery. You may have one or more of these problems or you may not experience any of these problems. Please contact your doctor if you have: ?? Shortness of breath ?? Need for supplemental oxygen ?? Post thoracotomy pain syndrome Cancer Survivors may experience issues with the area listed below. If you have any concerns in these or other areas, please speak with your doctors or nurses to find out how you can get help with them. Potential Areas of Concern Potential Areas of Concern: Emotional and Mental Health Physical Functioning Memory or Concentration Loss Fatigue Insurance Issues Parenting Spiritual Issues Weight Changes School/Work Fertility Stopping Smoking Financial Advice or Assistance Sexual Functioning Resources Provided to Patient Referrals Provided: [facility] Program Follow-up and Survivorship Care Follow Up Care When / How Often? Coordinating Provider Medical Oncology Visits: Every 3-6 months for first 3 years. Every 6 months years 4 & 5. Annually after year 5. Medical Oncologist Surgeon: 2 weeks after surgery. If early stage lung cancer and not being followed by oncologist, ever 3-6 months for the first 3 years. Then every 6-12 month year 4/5. Annually after year 5. Surgeon Radiation Oncologist: Every 3-6 months for the first 3 years. Annually after year 3. N/A Distribution Center Assistant: As needed or directed. as needed or directed Chest CT w/contrast: Every 3-6 months for 3 years, then every 6 months for years 4 and 5 Medical Oncologist Low Dose Chest CT : Annually after 5 years PCP Other Imaging As directed by MD Medical Oncologist and PCP Colonoscopy Every 5 years or as directed by MD PCP Non cancer related preventive care Continue your routine visits to your primary care physician for preventative care. Bone health ?? DEXA every 2 years ?? Calcium with vitamin D ?? Weight bearing exercise Lung Cancer Screening ?? 55-77 years of age ?? 30 pack per year or more smoking history ?? Current Smoker or smoked within the last 15 years ?? No signs and symptoms of lung cancer ?? Smoked one pack of cigarettes per day for 30 years or two packs a day for 15 years ?? In generally good health Colon Cancer Screening ?? Screening colonoscopy starting at age 45 or as discussed with PCP ?? Stool guaiac tests ?? Eat fruits and vegetables Heart Health ?? Weight management ?? Cholesterol management ?? Blood sugar control ?? Blood pressure control Cervical Cancer Screening ?? Pap test as discussed with PCP Breast Cancer Screening ?? Mammograms as discussed with your PCP Call your doctor if you have any of these signs and symptoms: anorexia, bleeding - blood tinged sputum, bone pain, chest pain (non-pleuritic), chest pain (pleuritic), constipation, cough, dehydration, diarrhea, dizziness, dyspnea on exertion, fatigue, fever and chills, headaches, hot flashes, nausea, night sweats, shortness of breath and weight loss *Any new, unusual and/or persistent symptoms should be brought to the attention of your provider. RESOURCES [facility] organizations Cancer Support Community of [facility] cancer community office which include support groups (including a survivorship group), mentoring, exercise and yoga classes among other ways to get involved and connect with fellow survivors as well as resources for families and caregivers. Website: http://www.cancersupportstl.org/ Livestrong at the [facility] A physical activity and wellness program designed for cancer survivors to help achieve well-being. Contact your local [facility] to get started. The program is free to join and lasts for 12 weeks. Visit the website to see a list of participating locations. Website: https://www.[facility].org/program/livestrong Cancer Information Center at [facility]???s [facility] Call or drop by to speak with a social science instructor or nurse navigator for questions about financial/food/housing assistance, counseling services, resources for wigs, hose seamer referral and general questions about diagnosis, treatment and survivorship. There is also a survivorship monthly support group that meets at [facility]. Call for more information. Website for special events/classes: https://www.[facility]/practice/[facility]/rashadce w-arrpzcgq-rez-special-events/ National nonprofit organizations [employer] Cancer Society/National Cancer Information Center [facility] provides cancer information and support to patients, families, and caregivers. It also supportsresearch, community, education, and advocacy and public policy issues Phone: 3-278-ASR-5900 ( ) Website: www.cancer.org CancerCare Provides free, professional support services to anyone affected by cancer. CancerCare programs include counseling, education, financial assistance and practical help by trained oncology social workers and are free of charge. Phone: 8-696-774-HOPE ( ) Website: www.cancercare.org Cancer Hope Network Cancer Hope Network matches patients and families with trained volunteers who have recovered from asimilar cancer experience. Phone: 2-594-NUQJEUW ( ) Website: www.cancerhopenetwork.org Cancer Support Community Cancer support community is a national organization that provides support groups, stress reduction and cancer education workshops, nutrition guidance, exercise sessions and social events. Phone: 5-013-156-[employer] ( ) Website: www.cancersupportcommunity.org National Coalition for Cancer Survivorship NCCS provides information and resources on cancer support, advocacy, and jukyxzg-fa-qksj issues to cancer survivors and loved ones. Phone: 1-092-BEXW-YES ( ) Website: www.canceradvocacy.org Patient Advocate Foundation [facility] provides education, legal counseling, and referrals to cancer patients and survivors. It specializes in matters related to managed care, insurance, financial issues, job discrimination and debt crisis. Phone: Website: www.patientadvocate.org [employer] Society Guidelines on Nutrition and Physical Activity For Cancer Prevention 1. Achieve and maintain a healthy weight. ??? Avoid weight gain during cancer treatment, whether you are at a healthy weight or overweight. ??? Weight loss after recovery from treatment may benefit survivors who are overweight or obese. 2. Be physically active. ??? Studies show that exercise is safe during cancer treatment, and can improve many aspects of health, including muscle strength, balance, fatigue, and depression. ??? Physical activity after diagnosis is linked to living longer and a reduced risk of the cancer returning among people living with cancer, including breast, colorectal, prostate, and ovarian cancer. ??? Aim for 30 min of exercise 5 days a week. 3. Eat a healthy diet, with an emphasis on fruits, vegetables, and whole grains. ??? The most health benefits are associated with a diet high in fruits, vegetables, whole grains, poultry, and fish, and low in refined grains, red meat and processed meat (such as hot dogs), desserts, high-fat dairy products and Tamazight fries. Most of the studies about cancer and diet have focused on breast cancer. ??? Studies show that taking vitamins, herbs and other nutritional supplements often does not help cancer patients live longer, and may even shorten life. Before taking any supplement, discuss it with your health care provider. 4. Don't smoke 5. If you drink alcohol, limit your intake. ?? Drink no more than 1 drink per day for women or 2 per day for men. 6. Sunscreen use ??? Exposure to ultraviolet rays is the leading cause of skin cancer. It is important to protect your skin. Sun damage builds up over time. It is important to use sunscreen every day. You should use a sunscreen that is water resistant and has an SPF of 30 or above. Remember to also protect your lips and eyes. 7. Routine blood pressure, cholesterol, and glucose monitoring. ??? While many cancer survivors worry about their cancer coming back most cancer survivors are morelikely to develop other chronic medical conditions such as high blood pressure, heart disease, and diabetes. Be sure to start and/or continue to see your primary care physician regularly. 8. Vaccines ??? The flu is a respiratory infection caused by viruses. While most people with the flu get betteron their own it can be serious. It can cause many medical complications and sometimes even . Be sure to get an annual influenza vaccine (flu shot). ??? Pneumococcal diseases can cause serious infections in the lungs and bloodstream. A pneumococcalvaccine is recommended for all adults 65 years of age and older. It is also recommended for some younger adults who have chronic health conditions. Be sure and check with your doctor if you need a pneumococcal vaccine. 9. Routine Dental Care ??? Your oral health may be more important than you think. It can contribute to various medical diseases and conditions. Daily oral hygiene helps decrease our risk of tooth decay and gum disease. Be sure to brush twice a day, floss daily, and see your dentist regularly for checkups and cleanings. 10. Eye Health ??? Our eyes are called the windows to the world. Make sure you take good care of your. Adults should have their eyes examined every 2 years until age 60. We should then undergo eye exams yearly. Individuals with contact lenses, glasses, or who are at high risk for eye problems (i.e. diabetes, family history of eye disease) should be seen more frequently. Important caution: this is a summary document whose purpose is to review the highlights of the cancer treatment for this patient. This does not replace information available in the medical record, a complete medical history provided by the patient, examination and diagnostic information, or educational materials that describe strategies for coping with cancer and cancer therapies in detail. Both medical science and an individual???s health care needs change, and therefore this document is current only as of the date of preparation. This summary document does not prescribe or recommend any particular medical treatment or care for cancer or any other disease and does not substitute for the independent medical judgment of the treating professional.
--- OUTSIDE RECORDS SUMMARY | 2024-08-17 10:03 | XMS_ITS | Clinical Summary ---
Author Organization [facility] Address [address] [place] [address] Care Team Providers Care Room Worker Name Role Phone Benjamin Ley MD Primary Care Provider Allergies Active Allergy Reactions Criticality Noted Date Comments Adhesive Swelling Low 06/04/2017 Medications ALPRAZolam (XANAX) 1 mg tablet Take 0.5 mg by mouth nightly as needed for Anxiety . Active aspirin-caffein e (JAMAL BACK AND BODY) 500-32.5 mg Tablet Take by mouth. Activ e albuterol HFA 90 mcg inhaler Take 1 Puff by inhalation. Active atorvastatin (LIPITOR) 40 mg tablet Take 40 mg by mouth daily. 1 Active buPROPion HCL (WELLBUTRIN XL) 150 mg Extended Release 24 hour tablet bupropion HCl XL 150 mg 24 hr tablet, extended release Active cholecalciferol 1,250 mcg (50,000 unit) Capsule 1 Active traZODone (DESYREL) 50 mg tablet TAKE 1 TABLET BY MOUTH EVERY DAY AT BEDTIME NEEDED FOR INSOMNIA 2 Active citalopram (CeleXA) 10 mg tablet Take 10 mg by mouth daily. 2 Active lisinopriL (PRINIVIL) 40 mg tablet Take 40 mg by mouth daily. 3 Active amLODIPine (NORVASC) 5 mg tablet Take 1 Tablet by mouth daily. 4 Active diphenhydrAMINE (BENADRYL) 25 mg tablet Take 25 mg by mouth. Active Active Problems Problem Noted Date Diagnosed Date Abdominal aortic aneurysm (AAA) without rupture 06/20/2017 Malignant neoplasm of upper lobe of left lung Encounters Date Type Department Care Team Description 08/05/2024 External Device Data [facility] ABSTRACTION Provider, Abstract 07/27/2024 External Device Data [facility] ABSTRACTION Provider, Abstract 07/08/2024 External Device Data [facility] ABSTRACTION Provider, Abstract 07/07/2024 External Device Data [facility] ABSTRACTION Provider, Abstract from Last 3 Months Family History Medical History Relation Name Comments Diabetes Brother Cancer Father Relation Name Status Comments Brother Alive Father Mother Social History Tobacco Use Types Packs/Day Years Used Date Smoking Tobacco: Every Day Cigarettes 1 61 Started: [birth year]/14/1957; Last attempted to quit: 05/14/2017 Smokeless Tobacco: Never Tobacco Cessation:Ready to Q uit: Not Asked; Counseling Given: Not Answered Comments:Patient currently is using the nicotine patch Alcohol Use Standard Drinks/Week Comments Yes 0 (1 standard drink = 0.6 oz pur e alcohol) rare Comments No Sex and Gender Information Value Date Recorded Sex Assigned at Not on file Legal Sex 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 Gender Identity Not on file Sexual Orientation Not on file Last Filed Vital Signs Vital Sign Reading Time Taken Comments Blood Pressure 153/100 03/05/2024 11:47 AM CDT Pulse 51 03/05/2024 11:39 AM CDT Temperature 36.8 C (98.2 F) 03/05/2024 11:39 AM CDT Respiratory Rate 14 03/05/2024 11:3 9 AM CDT Oxygen Saturation 91% 03/05/2024 11: 39 AM CDT Inhaled Oxygen Concentration - - Weight 65.7 kg (144 lb 12.8 oz) 024 11:39 AM CDT Height 167.6 cm (5' 6 ) 01/26/2022 10:0 1 AM CDT Body Mass Index 23.37 01/26/2022 10:01 AM CDT Plan of Treatment Upcoming Encounters Date Type Department Care Team (Late st Contact Info) Description 11/11/2024 10:15 AM CDT Office Visit [facility] Oncology and Hematology - [place] [address] [place] [address] Wyatt Perez MD [address] [place] [id number] Health Maintenance Due Date Last Done Comments DTAP/TDAP/TD VACCINES (1 - Tdap) 1964 PNEUMOCOCCAL VACCINE 50+ YEARS (2 of 2 - PPSV23) 03/0501/09/2016 ZOSTER VACCINE (2 of 3) 03/05/2016 01/09/2016 RSV VACCINE (60+ or ) (1 - 1-dose 75+ series) 2021 INFLUENZA VACCINE (#1) 2023 03/21/2020 OSTEOPOROSIS SCREENING Completed 02/02/2021 COLORECTAL SCREENING Discontinued 09/03/2022 Colorectal Cancer Screening Discontinued FIT-DNA Q 3 years Discontinued FIT/FOBT Q 1 year Discontinued Flex Sig/CT Colonography Q 5 years Discontinued Medical Devices Implanted Type Area Demand Planning Analyst Device Identifier Shelf Expiration Date Model / Serial / Lot Sealant Floseal 5ml [id number] - [id number] Implanted:Qty : 1 on 07/09/2017 by Jose Alejandro Cantu MD at [facility] Sealant N/A: Arterial Fiber Options 09/04/2018 [id number] / / [id number] Sealant Fibrin Artiss 10ml Frzn [id number] - [id number] Implanted:Qty : 1 on 08/22/2017 by Dickson Sanford MD at [facility] Sealant Left: Chest Fiber Options 04/18/2019 [id number] / [id number] / [id number] Stent Zenith Flx Zt Main Bdy [id number] - [id number] Implanted:Qty : 1 on 07/09/2017 by Jose Alejandro Cantu MD at [facility] Stent N/A: Aorta COOK- INTERVENTIONAL RAD 04/18/2019 [id number] / / [id number] Description:main body compon ent Stent Znth Sprl-Z Ilc Leg Ijpo-25-78-Zt [id number] - [id number] Implanted:Qty : 1 on 07/09/2017 by Jose Alejandro Cantu MD at [facility] Stent Left: Arterial COOK- AORTIC INTERVENTION 11/30/2019 [id number] / / [id number] Description:left iliac leg c omponent Stent Znth Sprl-Z Ilc Leg Peit-93-35-Zt [id number] - [id number] Implanted:Qty : 1 on 07/09/2017 by Jose Alejandro Cantu MD at [facility] Stent Right: Arterial COOK- AORTIC INTERVENTION 01/17/2020 [id number] / / [id number] Description:right iliac comp onent Insurance MEDICARE PART A AND B MEDICARE PART A AND B [facility] Advance Directives For more information, please contact: [phone] * Full Code (Latest Code Status on File) Date Activated Date Inactivated Comments 08/22/2017 2:23 PM 08/24/2017 12:00 PM * Full Code Date Activated Date Inactivated Comments 08/22/2017 5:58 AM 08/22/2017 2:23 PM * Full Code Date Activated Date Inactivated Comments 08/22/2017 5:58 AM 08/22/2017 5:58 AM * Full Code Date Activated Date Inactivated Comments 07/09/2017 4:21 PM 07/10/2017 1:27 PM * Full Code Date Activated Date Inactivated Comments 07/09/2017 8:36 AM 07/09/2017 4:21 PM Care Teams Room Worker Relationship Specialty Start Date End Date Benjamin Ley MD [facility] [place] [address] PCP - General Family Practice 03/05/24
--- OUTSIDE RECORDS SUMMARY | 2024-08-17 10:03 | XMS_ITS | CONTINUITY OF CARE DOCUMENT ---
Author Name capri farooq Address Unknown Organization [facility] Address [address] [place] [address] Phone [phone] Care Team Providers Care Manager Of Pharmacy Name Role Phone Mahesh REYES, Eliceo Unavailable [phone] CHAYITO ROB MD Unavailable CHAYITO ROB MD Unavailable PROBLEMS Condition Status Date Provider Notes Depression active CHAYITO ROB MD Disorder of bone and cartilage, unspecified active 201 08/24/08 CHAYITO ROB MD ENCOUNTERS Date Type Provider Location Encounter Diag nosis - In-person encounter Office Visit [facility] - In-person encounter Office Visit CHAYITO ROB MD [facility] DepressionDisorder of bone and cartilage, unspecified - In-person encounter Office Visit [facility] - In-person encounter Office Visit [facility] - In-person encounter Office Visit [facility] HISTORY OF MEDICATION USE Medication Status Instructions Dates Provider Indications Com ments ALPRAZOLAM 0.5 MG ORAL TABLET active ONE TABLET DAILY CHAYITO ROB MD INSURANCE PROVIDERS Payer name Policy type / Coverage type Fernanda red democrat ID [id number] [place] [employer] Medicare [id number]
--- OUTSIDE RECORDS SUMMARY | 2024-08-17 10:03 | XMS_ITS | Clinical Summary ---
Author Organization [facility] Address [facility] [place] [address] Care Team Providers Care Ad Trafficker Name Role Phone Benjamin Ley MD Primary Care Provider Allergies Active Allergy Reactions Criticality Noted Date Comments Tape Swelling Low 06/04/2017 Medications albuterol sulfate HFA (VENTOLIN HFA) 108 (90 Base) MCG/ACT inhaler Ventolin HFA 90 mcg/actuation aerosol inhaler inhale 2 puff by inhalation route every 4 - 6 hours as needed Active ALPRAZolam (XANAX) 0.5 MG tablet alprazolam 0.5 mg tablet Active ALPRAZolam 1 MG/ML Conc Alprazolam Intensol 1 mg/mL oral concentrate take 0.25 milliliter by oral route 3 times every day mixed with water, juice, soda, soda-like beverage, applesauce or pudding Active atorvastatin (LIPITOR) 40 MG tablet Take 1 tablet (40 mg total) by mouth daily. 1 Active buPROPion XL (WELLBUTRIN XL) 150 MG 24 hr tablet bupropion HCl XL 150 mg 24 hr tablet, extended release Active lisinopril (PRINIVIL) 20 MG tablet lisinopril 20 mg tablet Active traZODone (DESYREL) 50 MG tablet Take 1 tablet (50 mg total) by mouth nightly at bedtime. 3 Active Active Problems Problem Noted Date Diagnosed Date Infrarenal abdominal aortic aneurysm (AAA) witho ut rupture 04/18/2023 Disorder of ovary 10/23/2018 Polyp of corpus uteri 10/23/2018 Postmenopausal bleeding 07/29/2017 Abnormal finding of diagnostic imaging 8 Urinary tract infectious disease 07/01/2017 Malignant neoplasm of upper lobe of left lung ([facility]) 06/04/2017 Depression 11/25/2013 Disorder of bone and cartilage 11/25/2013 Microscopic hematuria 11/07/2011 Immunizations Name Administration Dates Next Due Fluzone High Dose - >Age 65 (Prefilled Syringe) 03/21/2020 Pneumococcal (Prevnar 13) 01/09/2016 Zoster (Zostavax) 39489 Unt/0.65Ml 01/09/2016 Social History Tobacco Use Types Packs/Day Years Used Date Smoking Tobacco: Never Assessed Comments Unknown Sex and Gender Information Value Date Recorded Sex Assigned at Not on file Legal Sex Female 6:51 AM CDT Gender Identity Not on file Sexual Orientation Not on file Last Filed Vital Signs Vital Sign Reading Time Taken Comments Blood Pressure 130/80 04/18/2023 1:09 PM [employer]ASS [employer] Pulse 76 04/18/2023 1:09 PM [employer] Temperature - - Respiratory Rate - - Oxygen Saturation - - Inhaled Oxygen Concentration - - Weight 71.1 kg (156 lb 12.8 oz) 04/18/2023 1:09 PM [employer] Height 168.9 cm (5' 6.5 ) 04/18/2023 1:09 PM [employer] Body Mass Index 24.93 04/18/2023 1:09 PM [employer] Plan of Treatment Upcoming Encounters Date Type Department Care Team (Late st Contact Info) Description 04/28/2025 8:30 AM [facility] Appointment [facility] [address] [place], [place] [id number] Drake Panchal MD [facility]. [place] [facility] [place], [place] [id number] Health Maintenance Due Date Last Done Comments Hepatitis C 01/05/1963 DTaP, Tdap and Td Vaccines ( 1 - Tdap) 1964 Annual Medicare Wellness Visit 2011 Dexa Scan (General) 2011 Zoster Vaccines (2 of 3) 03/05/2016 01/09/2016 Pneumococcal Vaccine: 65+ Ye ars (2 of 2 - PPSV23 or PCV20) 01/08/2017 01/09/2016 RSV Immunization or 60+ Years (1 - 1-dose 75+ series) 2021 COVID-19 Vaccine (2 - 2023-2 5 season) 2024 07/22/2020 Meningococcal B Vaccine Aged Out No l onger eligible based on patient's age to complete this topic Meningococcal Vaccine Aged Out No jessica fabio eligible based on patient's age to complete this topic RSV Immunizations Under 20 Months Aged Out No longer eligible based on patient's age to complete this topic Insurance MEDICARE [facility] [employer] Care Teams Ad Trafficker Relationship Specialty Start Date End Date Benjamin Ley MD [address] [place] [address] PCP - General FAMILY PRACTICE 10/18/20
[2024-08-17 13:27] LABS: Basophils Absolute Auto 0.1 K/mm3 (0.0-0.1); Basophils Percent Auto 0.8 % (0.2-1.2); Eosinophils Absolute Auto 0.1 K/mm3 (0-0.3); Eosinophils Percent Auto 0.8 % (0-4.4); Hematocrit 48.6 % (37.0-47.0); Hemoglobin 15.6 g/dL (12.0-15.0); Immature Granulocyte Absolute 0.01 K/mm3 (0.00-0.031); Immature Granulocyte Percent A 0.2 % (0-0.5); Lymphocytes Absolute Auto 1.18 K/mm3 (0.9-3.2); Lymphocytes Percent Auto 17.7 % (18.3-44.2); Mean Corpuscular HGB Conc 32.1 g/dl (32-36); Mean Corpuscular Hemoglobin 30.2 pg (26-34); Mean Corpuscular Volume 94.2 fl (80-100); Mean Platelet Volume 11.6 fl (7.4-10.4); Monocytes Absolute Auto 0.5 K/mm3 (0.1-0.6); Monocytes Percent Auto 6.9 % (2.6-8.5); Neutrophils Absolute Auto 4.9 K/mm3 (1.3-6.7); Neutrophils Percent Auto 73.6 % (45.5-73.1); Platelet Count Result 144 k/mm3 (150-375); Red Blood Count 5.16 M/mm3 (4.2-5.4); Red Cell Distribution Width 13.9 % (11.5-14.5); White Blood Count 6.7 K/mm3 (4.5-10.0)
[2024-08-17 14:18] LABS: Free T4 Free Thyroxine 1.21 ng/dL (0.78-2.19)
[2024-08-17 14:28] LABS: Alanine Aminotransferase 19 U/L (6-35); Albumin Level 4.7 g/dL (3.5-5.1); Alkaline Phosphatase 82 U/L (38-126); Anion Gap 8 mmol/L (4-12); Aspartate Amino Transferase 44 U/L (14-36); Bilirubin,Total 0.8 mg/dL (0.2-1.3); Blood Urea Nitrogen 18 mg/dL (7-17); Calcium 9.5 mg/dL (8.4-10.2); Carbon Dioxide 27 mmol/L (22-30); Chloride 105 mmol/L (98-107); Cholesterol 177 mg/dL (0-200); Estimated Glomerular Filt Rate > 60; Glucose 99 mg/dL (65-110); HDL Direct 65 mg/dL; Potassium 4.7 mmol/L (3.4-5.0); Sodium 140 mmol/L (137-145); Triglycerides 153 mg/dL (<150)
[2024-08-17 14:41] LABS: LDL Cholesterol Direct 65 mg/dL
[2024-08-17 15:20] LABS: Hemoglobin A1C 5.4 % (<5.7)
== END 2024-08-17 09:22 | disposition home or self-care (01) ==
LOC: ANHGOSHLAB 09:22
PROVIDERS: PCP Family Medicine; Visit Provider Nurse Practitioner Family
DX: E78.5 Hyperlipidemia, unspecified (principal); R63.4 Abnormal weight loss; I10 Essential (primary) hypertension; R73.01 Impaired fasting glucose
CPT/HCPCS: 36415; 80053; 80061; 83036; 84439; 84443; 85025

== ENCOUNTER 2024-11-16 08:38 | Outpatient (CLI) | payer MEDICARE, SELFPAY ==
--- NOTE | ~2024-11-16 | CT_ITS ---
Clinical Indication: Lung cancer CT Scan of the Chest with Contrast: Technique: Contiguous sections were acquired throughout the chest after intravenous administration of 75 cc of Omnipaque 350. Dose reduction technique was used on this scan by utilizing automated exposu re control and iterative reconstruction technique. The dose-length product (DLP) was 153.11 mGy-cm. COMPARISON: 02/27/2024 Findings: There is no evidence of any significant mediastinal, hilar or axillary lymphadenopathy. There is no f illing defect in the pulmonary arterial tree to suggest pulmonary embolus. There is no evidence of ao rtic dissection or aneurysm. There is atherosclerotic change of the thoracic aorta. There is no evidence of pleural or pericardial effusion. Stable probable scarring or posttreatment change in the peripheral right lung apex. There is moderate emphysema, especially in the right upper lobe. Status post left upper lobectomy. Images through the upper abdomen reveal partial visualization of abdominal aortic stent graft. Impression: Status post left upper lobectomy. Stable scarring or posttreatment change in the peripheral right lung apex. Moderate emphysema. Reviewed, dictated and finalized at location . Impression: Status post left upper lobectomy. Stable scarring or posttreatment change in the peripheral right lung apex. Moderate emphysema.
[2024-11-16 09:00] LABS: Estimated Glomerular Filt Rate > 60
== END 2024-11-16 08:39 | disposition home or self-care (01) ==
PROVIDERS: PCP Family Medicine; Visit Provider Internal Medicine Hematology & Oncology
DX: C34.12 Malignant neoplasm of upper lobe, left bronchus or lung (principal); J43.9 Emphysema, unspecified; Z90.2 Acquired absence of lung [part of]
CPT/HCPCS: 71260; Q9967

== ENCOUNTER 2024-11-23 13:47 | Outpatient (CLI) | payer MEDICARE, SELFPAY ==
--- OUTSIDE RECORDS SUMMARY | 2024-11-23 13:52 | XMS_ITS | Clinical Summary ---
Author Organization [facility] Address [facility] [place] [address] Care Team Providers Care Nailhead Setter Name Role Phone Benjamin Ley MD Primary [...] neoplasm of upper lobe of left lung ([facility]) 06/04/2017 Depression 11/25/2013 Disorder of bone and cartilage 11/25/2013 Microscopic hematuria 11/07/2011 Immunizations Immunization Administration Dates Next Due Fluzone High Dose - >Age 65 (Prefilled Syringe) 03/21/2020 Pneumococcal (Prevnar 13) 01/09/2016 Zoster (Zostavax) 55444 Unt/0.65Ml 01/09/2016 Social History Tobacco Use Types Packs/Day Years Used Date Smoking Tobacco: Never Assessed Comments Unknown Sex and Gender Information Value Date Recorded Sex Assigned at Not on file Legal Sex Female 6:51 AM CDT Gender Identity Not on file Sexual Orientation Not on file Last Filed Vital Signs Vital Sign Reading Time Taken Comments Blood Pressure 130/80 04/18/2023 1:09 PM HOSE STRIPPER Pulse 76 04/18/2023 1:09 PM HOSE STRIPPER Temperature - - Respiratory Rate - - Oxygen Saturation - - Inhaled Oxygen Concentration - - Weight 71.1 kg (156 lb 12.8 oz) 04/18/2023 1:09 PM HOSE STRIPPER Height 168.9 cm (5' 6.5) 04/18/2023 1:09 PM HOSE STRIPPER Body Mass Index 24.93 04/18/2023 1:09 PM HOSE STRIPPER Plan of Treatment Upcoming Encounters Date Type Department Care Team (Late st Contact Info) Description 04/28/2025 8:30 AM HOSE STRIPPER Appointment [facility] [address] [place], [place] [id number] Drake Panchal MD Three [facility]. [place] [facility] [place], [place] [phone] Health Maintenance Due Date Last Done Comments Hepatitis C 01/05/1963 DTaP, Tdap and Td Vaccines ( 1 - Tdap) 1964 Annual Medicare Wellness Visit 2011 Dexa Scan (General) 2011 Zoster Vaccines (2 of 3) 03/05/2016 01/09/2016 Pneumococcal Vaccine: 50+ Ye ars (2 of 2 - PPSV23) 01/08/2017 01/09/2016 RSV Immunization or 60+ Years [...] age to complete this topic Insurance MEDICARE [facility] [employer] Care Teams Nailhead Setter Relationship Specialty Start Date End Date Benjamin Ley MD [address] [place] [address] PCP - General FAMILY PRACTICE 10/18/20
--- OUTSIDE RECORDS SUMMARY | 2024-11-23 13:52 | XMS_ITS ---
Author Organization [facility] Address [address] [place] [address] Care Team Providers Care Registered Client Associate Name Role Phone Benjamin Ley MD Primary [...] Lung Cancer Survivorship Care Plan Provided by [facility] on 08/26/18 General Information Patient Name: Shonda De La Fuente Patient : 1945 Care Team Medical Oncologist: Dr. Wyatt Perez - [phone] Surgeon: Dr. Dickson Sanford - [phone] Thoracic Surgeon: Dr. Dickson Sanford Radiation Oncologist: [...] 3 years. Annually after year 3. N/A Coat Examiner: As needed or directed. as needed or [...] to the attention of your provider. RESOURCES [facility] organizations Cancer Support Community of [facility] cancer community office which include support groups (including a survivorship group), mentoring, exercise and yoga classes among other ways to get involved and connect with fellow survivors as well as resources for families and caregivers. Website: http://www.cancersupportstl.org/ Livestrong at the [facility] A physical activity and wellness program designed for cancer survivors to help achieve well-being. Contact your local [facility] to get started. The program is free to join and lasts for 12 weeks. Visit the website to see a list of participating locations. Website: https://www.[facility].org/program/livestrong Cancer Information Center at [facility]???s [facility] Call or drop by to speak with a addiction social worker or nurse navigator for questions about financial/food/housing assistance, counseling services, resources for wigs, outside parts salesman referral and general questions about diagnosis, treatment and survivorship. There is also a survivorship monthly support group that meets at [place]. Call for more information. Website for special events/classes: https://www.[facility]/practice/[facility]/rashadce e-qbhvxivf-sky-special-events/ National nonprofit organizations Chinese Cancer Society/National Cancer Information Center [facility] provides cancer information and support to patients, families, and caregivers. It also supportsresearch, community, education, and advocacy and public policy issues Phone: 1-242-FEP-0589 ( ) Website: www.cancer.org CancerCare Provides free, professional support services to anyone affected by cancer. CancerCare programs include counseling, education, financial assistance and practical help by trained oncology social workers and are free of charge. Phone: 2-583-682-HOPE ( ) Website: www.cancercare.org Cancer Hope Network Cancer Hope Network matches patients and families with trained volunteers who have recovered from asimilar cancer experience. Phone: 7-899-QOLTSWA ( ) Website: www.cancerhopenetwork.org Cancer Support Community Cancer support community is a national organization that provides support groups, stress reduction and cancer education workshops, nutrition guidance, exercise sessions and social events. Phone: 2-230-729-Picreel ( ) Website: www.cancersupportcommunity.org National Coalition for Cancer Survivorship NCCS provides information and resources on cancer support, advocacy, and qnsgkvn-cx-dnsi issues to cancer survivors and loved ones. Phone: 2-496-YYOV-YES ( ) Website: www.canceradvocacy.org Patient Advocate Foundation [facility] provides education, legal counseling, and referrals to cancer patients and survivors. It specializes in matters related to managed care, insurance, financial issues, job discrimination and debt crisis. Phone: Website: www.patientadvocate.org Chinese Cancer Society Guidelines on Nutrition and Physical [...] hot dogs), desserts, high-fat dairy products and Serbian fries. Most of the studies about cancer [...]
--- OUTSIDE RECORDS SUMMARY | 2024-11-23 13:52 | XMS_ITS | Data Portability ---
Author Organization [facility] [place] Address [address] [place] [address] Assessment No assessment recorded. Plan of Treatment Reminders Order Date Submit Date Provider Last Modified By Organization Details Last Modified Time Details Appointments None recorded. Lab None recorded. Referral None recorded. Procedures None recorded. Surgeries None recorded. Imaging US, pelvis 2019 020 rbeer3 [place], [address], [place], [address], 0 13:02:15 US, transvagina l 2019 020 TARSHA [place], [address], [place], [address], 1 14:17:16 Medication Orders None recorded. Patient TargetsNo targets recorded. Patient InstructionsNo instructions recorded. Reason for Referral None Reported. Results Created Date Observation Date Name Description Value Unit Range Abnormal Flag Note LastModifiedBy Organization Detail LastModifiedTime 07/07/19 21 07/07/2020 everett SERRATO md interpretati on Not Available [facility] [address], [place], [address], 01/07/2020 10:37:26 01/07/20 everett SERRATO observ ation record ed. ernesto Dangeloe [address], [place], [address], 01/07/2020 14:53:24 Result Notes None recorded. Problems Name Problem SNOMED Code Status Onset Date Resolution Date Notes Provider Name and Address Organization Details Recorded Time Postmenop ausal bleeding 92037706 Active 2017 Postmenopa usal bleeding;R ecorded Elsewhere: No Locatio n: [facility] rce: EHR Chroni c: N Practice ID: 0001 Billa ble Time: 08:30:00 AM Not Available [facility] 0 17:55:59 Specializ ed medical examinati on Active 2011 Gynecologi steven Examinatio n;Recorded Elsewhere: No Locatio n: [facility] rce: EHR Chroni c: N Practice ID: 0001 Billa ble Time: 10:00:00 AM Not Available [facility] 0 17:55:59 Urinary tract infectiou s disease 24105772 Active 2017 Urinary tract infection, site not specified; Recorded Elsewhere: No Locatio n: [facility] rce: EHR Chroni c: N Practice ID: 0001 Billa ble Time: 02:30:00 PM Not Available [facility] 0 17:55:59 Screening for malignant neoplasm of cervix Active 2011 Screening for malignant neoplasms of the cervix;Rec orded Elsewhere: No Locatio n: [facility] rce: EHR Chroni c: N Practice ID: 0001 Billa ble Time: 10:00:00 AM Not Available [facility] 0 17:55:59 test negative 035291741 Active 2017 Encounter for test, result negative;R ecorded Elsewhere: No Locatio n: [facility] rce: EHR Chroni c: N Practice ID: 0001 Billa ble Time: 08:30:00 AM Not Available [facility] 0 17:55:59 Lesion of ovary Active 2018 Other ovarian cyst, right side;Recor ded Elsewhere: No Locatio n: [facility] rce: EHR Chroni c: N Practice ID: 0001 Billa ble Time: 01:15:00 PM Not Available [facility] 0 17:55:59 Screening for malignant neoplasm of rectum Active 2011 Screening for malignant neoplasms of the rectum;Rec orded Elsewhere: No Locatio n: [facility] rce: EHR Chroni c: N Practice ID: 0001 Billa ble Time: 10:00:00 AM Not Available [facility] 0 17:55:59 Microscop ic hematuria 570215872 Active 2011 HEMATURIA MICROSCOPI C;Practice ID: 0001 Not Available [facility] 0 17:55:[address] Concept Active 2017 Encounter for general adult medical exam w abnormal findings;P ractice ID: 0001 Not Available [facility] 0 17:56:[address] Concept Active 2017 Encntr for dye worker exam (general) (routine) w/o abn findings;P ractice ID: 0001 Not Available [facility] 0 17:56:00 Imaging result abnormal 461683292 Active 2017 Abnormal findings on diagnostic imaging of body structures ;Practice ID: 0001 Not Available [facility] 0 17:56:00 Polyp of corpus uteri 69137777 Active 2018 Polyp of endometriu m;Recorded Elsewhere: No Locatio n: [facility] rce: EHR Chroni c: N Practice ID: 0001 Billa ble Time: 01:15:00 PM Not Available [facility] 0 17:56:00 Problem Notes None recorded. Medical Equipment None Reported. Medications Name Sig Start Date Stop Date Status Note LastModified by Organization Details LastModified Time lisinopri l 20 mg tablet active Not Available Not Available Not Available Nicoderm CQ 7 mg/24 hr daily transderm al patch apply 1 patch by transder mal route every day active Prescrib ed Elsewher e: Yes Loca tion: [facility] odify By: [email or web address] Mera ncounter DateTime : 07/01/19 18 02:30:00 PM Not Available Not Available Not Available alprazola m 0.5 mg tablet active Not Available Not Available Not Available lisinopri l 10 mg tablet take 1 tablet by oral route every day active Prescrib ed Elsewher e: Yes Loca tion: Kayleejamie [facility] odify By: [email or web address] Encount er DateTime : 10/24/19 19 01:15:00 PM Not Available Not Available Not Available Alprazola m Intensol 1 mg/mL oral concentra te take 0.25 millilit er by oral route 3 times every day mixed with water, juice, soda, soda-lik e beverage , applesau ce or pudding active Prescrib ed Elsewher e: Yes Loca tion: Sarah tesfaye [facility] odify By: [email or web address] Encount er DateTime : 11/07/19 12 10:00:00 AM Not Available Not Available Not Available Ventolin HFA 90 mcg/actua tion aerosol inhaler inhale 2 puff by inhalati on route every 4 - 6 hours as needed active Prescrib ed Elsewher e: Yes Loca tion: Sarah tesfaye [facility] odify By: [email or web address] Encount er DateTime : 10/24/19 19 01:15:00 PM Not Available Not Available Not Available bupropion HCl XL 150 mg 24 hr tablet, extended release active Not Available Not Available Not Available melatonin 5 mg capsule 07/01 completed Prescrib ed Elsewher e: Yes [facility] odify By: [email or web address] E ncounter DateTime : 11/07/19 12 10:00:00 AM Not Available Not Available Not Available Lizandro Back and Body 500 mg-32.5 mg tablet 11/11 completed Prescrib ed Elsewher e: Yes [facility]oca [facility] By: [email or web address] Encount er DateTime : 10/24/19 19 01:15:00 PM Not Available Not Available Not Available Vitals None Recorded Social History None recorded. Functional Status None recorded. Mental Status None recorded. Family History Nothing Reported Notes:Brother: heart stints, Diabetes mellitus Father: Cancer, lung Sister: Diabetes mellitus, Cancer, breast Medical History No medical history recorded. Gynecological HistoryNo gynecological history recorded. Obstetrics History GPAL:G 0 P 0 0 0 0 Past Encounters Encounter ID Performer Location Encounter Start Date Encounter Closed Date Diagnosis/Indication Diagnosis SNOMED-CT Code Diagnosis ICD10 Code Diagnosis Note [id number] Lewis English MD [place] [address] [address] 01/07/2020 09:40:34 01/07/2020 11:17:54 Mass of uterus 7968134536 03015 N85.8 N83.291 Health Concerns Section Related Observation LastModified by Organization Detai ls LastModified Time None Recorded Concern Status LastModified by Organization Details LastModified Time None Recorded Advance Directives Directive None Recorded Payers Insurance Date Sequence Insurance Name Policy Number Policy Scott Covered Member ID Scott Member ID Guarantor Name 01/07/2020 2 [employer] [facility] (MEDICARE SUPPLEMENT) Shonda De La Fuente [id number] 01/07/2020 1 [place] Shonda De La Fuente [id number] OBGyn Episode No OBEpisode recorded.
--- OUTSIDE RECORDS SUMMARY | 2024-11-23 13:52 | XMS_ITS | Clinical Summary ---
Author Organization [facility] Address [address] [place] [address] Care Team Providers Care Poison Information Specialist Name Role Phone Benjamin Ley MD Primary [...] Encounters Date Type Department Care Team Description 11/16/2024 Orders Only [facility] - [place] [address] [place] [address] Wyatt Perez MD 11/04/2024 Telephone [facility] - [place] [address] [place] [address] can was cancelled 11/03/2024 External Device Data STL ABSTRACTION Provider, Abstract 10/08/2024 External Device Data STL ABSTRACTION Provider, Abstract 10/07/2024 External Device Data ST[place] ABSTRACTION Provider, Abstract 10/06/2024 External Device Data STL ABSTRACTION Provider, Abstract [...] on file Legal Sex Female 10:49 AM LAST IRONER Gender Identity Not on file Sexual Orientation [...] 11:39 AM CDT Height 167.6 cm (5' 6) 01/26/2022 10:0 1 AM CDT Body Mass Index 23.37 01/26/2022 10:01 AM CDT Plan of Treatment Upcoming Encounters Date Type Department Care Team (Late st Contact Info) Description 11/23/2024 2:15 PM CDT Office Visit [facility] - [place] [address] [facility] [address] [place] [address] Wyatt Perez MD [address] [facility] [address] [place] [address] Health Maintenance Due Date Last Done Comments DTAP/TDAP/TD VACCINES (1 - Tdap) 1964 PNEUMOCOCCAL VACCINE 50+ YEARS (2 of 2 - PPSV23) 03/0501/09/2016 ZOSTER VACCINE (2 of 3) 03/05/2016 01/09/2016 RSV VACCINE (60+ or ) (1 - 1-dose 75+ series) 2021 [place] Prev entative Visit/Annual Wellness Visit 05/20/2024 INFLUENZA VACCINE (#1) 2024 03/21/2020 OSTEOPOROSIS SCREENING 02/02/2026 02/02/2021 COLORECTAL SCREENING Discontinued 09/03/2022 Colorectal Cancer Screening Discontinued FIT-DNA Q 3 years Discontinued FIT/FOBT Q 1 year Discontinued Flex Sig/CT Colonography Q 5 years Discontinued Medical Devices Implanted Type Area Window Sash Installer Device Identifier Shelf Expiration Date Model / Serial / Lot Sealant Floseal 5ml [id number] - [id number] Implanted:Qty : 1 on 07/09/2017 by Jose Alejandro Cantu MD at [facility] Sealant N/A: Arterial ESTEBAN- Sitemasher 09/04/2018 [id number] / / [id number] Sealant Fibrin Artiss 10ml Frzn [id number] - [id number] Implanted:Qty : 1 on 08/22/2017 by Dickson Sanford MD at [facility] Sealant Left: Chest ESTEBAN- Sitemasher 04/18/2019 [id number] / [id number] / [id number] Stent Zenith Flx Zt Main Bdy 02x72kv [id number] - [id number] Implanted:Qty : 1 on 07/09/2017 by Jose Alejandro Cantu MD at [facility] Stent N/A: Aorta COOK- INTERVENTIONAL RAD 04/18/2019 [id number] / / [id number] Description:main body compon ent Stent Znth Sprl-Z [facility] Leg Ejro-32-88-[id number] - [id number] Implanted:Qty : 1 on 07/09/2017 by Jose Alejandro Cantu MD at [facility] Stent Left: Arterial COOK- AORTIC INTERVENTION 11/30/2019 [id number] / / [id number] Description:left iliac leg c omponent Stent Znth Sprl-Z Il Leg Yvzj-92-54-[id number] - [id number] Implanted:Qty : 1 on 07/09/2017 by Jose Alejandro Cantu MD at [facility] Stent Right: Arterial COOK- AORTIC INTERVENTION 01/17/2020 [id number] / / [id number] Description:right iliac comp onent Procedures Procedure Name Priority Date/Time Associated Diagnosis Comments CT CHEST W CONTRAST Routine 11/16/2024 2:28 PM CDT from Last 3 Months Results * CT CHEST W CONTRAST (11/16/2024 2:28 PM CDT) Anatomical Region Laterality Modality Chest Computed Tomogra phy Wyatt Perez MD CT ORDERABLES Final Result from Last 3 Months Insurance ACCESS [facility] [place]H [id number] Advance Directives For more information, please contact: [phone] * Full Code (Latest Code Status on [...] 8:36 AM 07/09/2017 4:21 PM Care Teams Poison Information Specialist Relationship Specialty Start Date End Date Benjamin Ley MD [address] [facility] [place] [address] PCP - General Family Practice 03/05/24
[2024-11-23 14:03] LABS: Hematocrit 41.8 % (37.0-47.0); Hemoglobin 13.8 g/dL (12.0-15.0); Immature Granulocyte Percent A 0.2 % (0-0.5); Lymphocytes Absolute Auto 2.32 K/mm3 (0.9-3.2); Mean Corpuscular HGB Conc 33.0 g/dl (32-36); Mean Corpuscular Hemoglobin 30.7 pg (26-34); Mean Corpuscular Volume 92.9 fl (80-100); Nucleated Red Blood Cells Absolute Auto 0.000 K/mm3 (0.0-0.012); Nucleated Red Blood Cells Perc 0.0 % (0.0-0.2); Platelet Count Result 171 k/mm3 (150-375); Red Blood Count 4.50 M/mm3 (4.2-5.4); White Blood Count 8.2 K/mm3 (4.5-10.0)
[2024-11-23 14:12] LABS: Blood Urea Nitrogen 27 mg/dL (8-26); Carbon Dioxide 21 mmol/L (22-30); Chloride 106 mmol/L (98-109); Estimated Glomerular Filt Rate 43; Glucose 87 mg/dL (70-105); Ionized Calcium (POC) 1.17 mmol/L (1.11-1.31); Potassium 4.7 mmol/L (3.5-4.9); Sodium 139 mmol/L (138-146)
[2024-11-23 17:21] LABS: Alanine Aminotransferase 28 U/L (6-35); Albumin Level 4.2 g/dL (3.5-5.1); Alkaline Phosphatase 67 U/L (38-126); Anion Gap 6 mmol/L (4-12); Aspartate Amino Transferase 48 U/L (14-36); Bilirubin,Total 0.3 mg/dL (0.2-1.3); Blood Urea Nitrogen 27 mg/dL (7-17); Calcium 9.3 mg/dL (8.4-10.2); Carbon Dioxide 23 mmol/L (22-30); Chloride 107 mmol/L (98-107); Estimated Glomerular Filt Rate 49; Glucose 87 mg/dL (65-110); Potassium 4.7 mmol/L (3.4-5.0); Sodium 136 mmol/L (137-145); Total Protein 7.1 g/dL (6.3-8.2)
== END 2024-11-23 13:48 | disposition home or self-care (01) ==
LOC: ANHLAB 13:48
PROVIDERS: PCP Family Medicine; Visit Provider Internal Medicine Hematology & Oncology
DX: C34.12 Malignant neoplasm of upper lobe, left bronchus or lung (principal)
CPT/HCPCS: 36415; 80047; 80053; 85025

== ENCOUNTER 2025-03-18 08:01 | Outpatient (CLI) | payer MEDICARE, SELFPAY ==
--- NOTE | ~2025-03-18 | DEXA_ITS ---
Bone Density Report Name: TAMARA QUEEN Age: 80 Sex: Female Ethnicity: White Date of : 1945 Indication: postmenopausal; screening for osteoporosis; parental hip fracture; height loss; cancer; asthma or emphysema; rheumatoid arthritis; Referring Provider: MORENA PABLO Study: Bone densitometry was performed. Exam Date: March 18, 2025 Accession number: [id number] Bone Density: Region BMD T-score Z-score Classification AP Spine(L1-L4) 1.430 3.5 6.1 Normal Femoral Neck (Left) 0.664 -1.7 0.6 Osteopenia Total Hip (Left) 0.836 -0.9 1.1 Normal Femoral Neck (Right) 0.761 -0.8 1.5 Normal Total Hip (Right) 0.861 -0.7 1.3 Normal Total Hip Mean 0.848 -0.8 1.2 Normal World Health Organization criteria for BMD impression classify patients as: Normal (T-score at or above -1.0), Osteopenia (T-score between -1.0 and -2.5), or Osteoporosis (T-score at or below -2.5). 10-year Fracture Risk(1): Major Osteoporotic Fracture 35% Hip Fracture 27% Reported Risk Factors: [place] (), Neck BMD=0.664, BMI=22.5, parental fracture, smoking, rheumatoid arthritis (1) FRAX(R) Version 3.08. Fracture probability calculated for an untreated patient. Fracture probability may be lower if the patient has received treatment. Previous Exams: Region Exam Age BMD T-score BMD Change BMD Change Date g/cm2 vs Baseline vs Previous Total Hip(Left) 03/18/2025 80 0.836 -0.9 -0.042 (-4.8%) -0.042 (-4.8%) 02/02/2021 76 0.878 -0.5 *Denotes significance at 95% confidence level, LSC for Total Hip = 0.027 g/cm2 # Denotes dissimilar scan types or analysis methods Clinical Information Provided by Patient: Parent has had a hip fracture Smokes Has rheumatoid arthritis Has the following medical conditions: Asthma or Emphysema, Cancer Patient maximum height was 67 Menopause Age: 49 No regular weight bearing exercise Drinks caffeinated beverages Onset of menses at age 14 Number of children 2 Impression: The patient has low bone mass, based on the Left Femoral Neck T-score. The patient has an estimated ten-year risk of hip fracture of 27% and an estimated ten-year risk of major fracture of 35%, based on the WHO FRAX algorithm. The patient has risk factors, including: parental hip fracture, smoking. No significant bone loss was observed. Discussion: BONE DENSITY IS LOW AT ONE OR MORE SKELETAL SITES. THE PATIENT'S BMD AND CLINICAL RISK FACTORS CONTRIBUTE TO THIS PATIENT'S HIGH RISK OF FRACTURE. This patient's lowest T-score is low at one or more skeletal sites. It meets the World Health Organization's (WHO) criteria for ?low bone mass? (T-score between -1.0 and -2.5). The patient's 10-year risk of hip fracture and 10 year risk of a major osteoporotic fracture as calculated by FRAX exceeds the threshold where pharmacological therapy is recommended by the National Osteoporosis Foundation (NOF). However, all treatment decisions require clinical judgment and consideration of individual patient factors, including patient preferences, comorbidities, previous drug use, risk factors not captured in the FRAX model (e.g., frailty, falls, vitamin D deficiency, increased bone turnover, interval significant decline in bone density) and possible under or overestimation of fracture risk by FRAX. The patient should follow a healthful lifestyle (good nutrition with adequate calcium and vitamin D, and appropriate weight-bearing exercise). Follow-Up: Consider a repeat BMD and Vertebral Fracture Assessment (VFA) exam in 2 years or sooner if medically necessary, to reassess this patient's status. Reported by: SHA on 03/18/2025 8:43:00 AM. Reviewed, dictated and finalized at location A.
--- OUTSIDE RECORDS SUMMARY | 2025-03-18 08:08 | XMS_ITS | Clinical Summary ---
Author Organization [facility] Address [address] [place] [address] Care Team Providers Care Management Assistant Name Role Phone Benjamin Ley MD Primary [...] 1 Tablet by mouth daily. 4 Active Active Problems Problem Noted Date Diagnosed Date Abdominal aortic aneurysm (AAA) without rupture 06/20/2017 Malignant neoplasm of upper lobe of left lung Encounters Date Type Department Care Team Description 02/03/2025 External Device Data STL ABSTRACTION Provider, Abstract 01/05/2025 External Device Data STL ABSTRACTION Provider, Abstract 01/05/2025 External Device Data STL ABSTRACTION Provider, Abstract from Last 3 Months Family History Medical History Relation Name Comments Diabetes Brother Cancer Father Relation Name Status Comments Brother Alive Father Mother Social History Tobacco Use Types Packs/Day Years Used Date Smoking Tobacco: Former Cigarettes 1 67.4 1 07/15/1956 - 10/16/2024 Smokeless Tobacco: Never Comments:Patient currently i s using the nicotine patch Alcohol Use Standard Drinks/Week Comments Yes 0 (1 standard drink = 0.6 oz pur e alcohol) rare Comments No Sex and Gender Information Value Date Recorded Sex Assigned at Not on file Legal Sex Female 10:49 AM ESTHETICIAN SPA Gender Identity Not on file Sexual Orientation Not on file Last Filed Vital Signs Vital Sign Reading Time Taken Comments Blood Pressure 95/55 11/23/2024 2:19 PM CDT Pulse 48 11/23/2024 2:15 PM CDT Temperature 36.8 C (98.2 F) 11/23/2024 2:15 PM CDT Respiratory Rate 15 11/23/2024 2:15 PM CDT Oxygen Saturation 91% 03/05/2024 11:39 AM CDT Inhaled Oxygen Concentration - - Weight 65.5 kg (144 lb 6.4 oz) 11/23/2024 2:15 P M CDT Height 167.6 cm (5' 6) 01/26/2022 10:01 AM CDT Body Mass Index 23.31 01/26/2022 10:01 AM CDT Plan of Treatment Upcoming Encounters Date Type Department Care Team (Late st Contact Info) Description 08/25/2025 10:15 AM CDT Office Visit [facility] Oncology and Hematology - [place] [address] [facility] [address] [place] [address] Wyatt Perez MD [address] [facility] [address] [place] [address] Health Maintenance Due Date Last Done Comments DTAP/TDAP/TD VACCINES (1 - Tdap) 1964 ZOSTER VACCINE (2 of 3) 03/05/2016 01/09/2016 PNEUMOCOCCAL VACCINE 50+ YEA RS (2 of 2 - PCV20 or PCV21) 01/08/2017 01/09/2016 RSV VACCINE (60+ or ) (1 - 1-dose 75+ series) 2021 INFLUENZA VACCINE (#1) 2024 03/21/2020 OSTEOPOROSIS SCREENING 02/02/2026 02/02/2021 COLORECTAL SCREENING Discontinued 09/03/2022 Colorectal Cancer Screening Discontinued FIT-DNA Q 3 years Discontinued FIT/FOBT Q 1 year Discontinued Flex Sig/CT Colonography Q 5 years Discontinued Medical Devices Implanted Type Area Soft Mud Molder Device Identifier Shelf Expiration Date Model / Serial / Lot Sealant Floseal 5ml [id number] - [id number] Implanted:Qty : 1 on 07/09/2017 by Jose Alejandro Cantu MD at [facility] Sealant N/A: Arterial TEVIZZ 09/04/2018 [id number] / / [id number] Sealant Fibrin Artiss 10ml Frzn [id number] - [id number] Implanted:Qty : 1 on 08/22/2017 by Dickson Sanford MD at [facility] Sealant Left: Chest TEVIZZ 04/18/2019 [id number] / [id number] / [id number] Stent Zenith Flx Zt Main Bdy [id number] - [id number] Implanted:Qty : 1 on 07/09/2017 by Jose Alejandro Cantu MD at [facility] Stent N/A: Aorta COOK- INTERVENTIONAL RAD 04/18/2019 [id number] / / [id number] Description:main body compon ent Stent Znth Sprl-Z [facility] Leg Lent-72-53-Zt [id number] - [id number] Implanted:Qty : 1 on 07/09/2017 by Jose Alejandro Cantu MD at [facility] Stent Left: Arterial COOK- AORTIC INTERVENTION 11/30/2019 [id number] / / [id number] Description:left iliac leg c omponent Stent Znth Sprl-Z Ilc Leg Ibcl-21-97-Zt [id number] - [id number] Implanted:Qty : 1 on 07/09/2017 by Jose Alejandro Cantu MD at [facility] Stent Right: Arterial COOK- AORTIC INTERVENTION 01/17/2020 [id number] / / [id number] Description:right iliac comp onent Insurance [facility] OPEN ACCESS [facility] [place] [id number] Advance Directives For more information, please contact: [phone] * Full Code (Latest Code Status on [...] 8:36 AM 07/09/2017 4:21 PM Care Teams Management Assistant Relationship Specialty Start Date End Date Benjamin Ley MD [address] [place] [address] [place] [address] PCP - General Family Practice 03/05/24
--- OUTSIDE RECORDS SUMMARY | 2025-03-18 08:08 | XMS_ITS | Clinical Summary ---
Author Organization [facility] Address [facility] [place] [address] Care Team Providers Care Account Specialist Name Role Phone Benjamin Ley MD [...] neoplasm of upper lobe of left lung Depression 11/25/2013 Disorder of bone and cartilage 11/25/2013 Microscopic hematuria 11/07/2011 Immunizations Immunization Administration Dates Next Due Fluzone High Dose - >Age 65 (Prefilled Syringe) 03/21/2020 Pneumococcal (Prevnar 13) 01/09/2016 Zoster (Zostavax) 08438 Unt/0.65Ml 01/09/2016 Social History Tobacco Use Types Packs/Day Years Used Date Smoking Tobacco: Never Assessed Comments Unknown Sex and Gender Information Value Date Recorded Sex Assigned at Not on file Legal Sex Female 6:51 AM CDT Gender Identity Not on file Sexual Orientation Not on file Last Filed Vital Signs Vital Sign Reading Time Taken Comments Blood Pressure 130/80 04/18/2023 1:09 PM MANAGER FRAUD Pulse 76 04/18/2023 1:09 PM MANAGER FRAUD Temperature - - Respiratory Rate - - Oxygen Saturation - - Inhaled Oxygen Concentration - - Weight 71.1 kg (156 lb 12.8 oz) 04/18/2023 1:09 PM MANAGER FRAUD Height 168.9 cm (5' 6.5) 04/18/2023 1:09 PM MANAGER FRAUD Body Mass Index 24.93 04/18/2023 1:09 PM MANAGER FRAUD Plan of Treatment Upcoming Encounters Date Type Department Care Team (Late st Contact Info) Description 04/28/2025 8:30 AM MANAGER FRAUD Appointment [facility] [address] [place], [place] [id number] Drake Panchal MD Three [facility]. [facility] [place], [place] [id number] Health Maintenance Due Date Last Done Comments Hepatitis C 01/05/1963 DTaP, Tdap and Td Vaccines ( 1 - Tdap) 1964 Annual Medicare Wellness Visit 2011 Dexa Scan (General) 2011 Zoster Vaccines (2 of 3) 03/05/2016 01/09/2016 Pneumococcal Vaccine: 50+ Ye ars (2 of 2 - PCV20 or PCV21) 01/08/2017 01/09/2016 RSV Immunization or 60+ Years (1 - 1-dose 75+ series) 2021 COVID-19 Vaccine (2 - 2024-2 6 season) 2025 07/22/2020 Influenza Adult (#1) 2025 03/21/2020 Hepatitis A Vaccines Aged Out No long er eligible based on patient's age to complete this topic Meningococcal B Vaccine Aged Out No l onger eligible based on patient's age to complete this topic Meningococcal Vaccine Aged Out No jessica fabio eligible based on patient's age to complete this topic RSV Immunizations Under 20 Months Aged Out No longer eligible based on patient's age to complete this topic Insurance MEDICARE [employer] Care Teams Account Specialist Relationship Specialty Start Date End Date Benjamin Ley MD [address] [place] [address] PCP - General FAMILY PRACTICE 10/18/20
--- OUTSIDE RECORDS SUMMARY | 2025-03-18 08:08 | XMS_ITS ---
Author Organization [facility] Address [address] [facility] [place] [address] Care Team Providers Care Head Stock Operator Name Role Phone Benjamin Ley MD Primary [...] Malignant neoplasm of upper lobe of left lung* Lung Cancer Survivorship Care Plan Provided by [facility] on 08/26/18 General Information Patient Name: Shonda De La Fuente Patient : 1945 Care Team Medical Oncologist: Dr. Wyatt Perez - [phone] Surgeon: Dr. Dickson Sanford - [phone] Thoracic Surgeon: Dr. Dickson Sanford Radiation Oncologist: [...] 3 years. Annually after year 3. N/A Work Study Student: As needed or directed. as needed or [...] to the attention of your provider. RESOURCES [facility] organizations Cancer Support Community of [facility] cancer community office which include support groups (including a survivorship group), mentoring, exercise and yoga classes among other ways to get involved and connect with fellow survivors as well as resources for families and caregivers. Website: http://www.cancersupportstl.org/ Livestrong at the [facility] A physical activity and wellness program designed for cancer survivors to help achieve well-being. Contact your local [facility] to get started. The program is free to join and lasts for 12 weeks. Visit the website to see a list of participating locations. Website: https://www.[facility].org/program/livestrong Cancer Information Center at [facility]???s [facility] Call or drop by to speak with a social worker aide or nurse navigator for questions about financial/food/housing assistance, counseling services, resources for wigs, propellant assembler referral and general questions about diagnosis, treatment and survivorship. There is also a survivorship monthly support group that meets at [place]. Call for more information. Website for special events/classes: https://www.[facility]/practice/[facility]/cance t-elxxplbr-apu-special-events/ National nonprofit organizations [place] Cancer Society/National Cancer Information Center [facility] provides cancer information and support to patients, families, and caregivers. It also supportsresearch, community, education, and advocacy and public policy issues Phone: 0-951-GGP-1028 ( ) Website: www.cancer.org CancerCare Provides free, professional support services to anyone affected by cancer. CancerCare programs include counseling, education, financial assistance and practical help by trained oncology social workers and are free of charge. Phone: 2-018-405-HOPE ( ) Website: www.cancercare.org Cancer Hope Network Cancer Hope Network matches patients and families with trained volunteers who have recovered from asimilar cancer experience. Phone: 5-267-LMQDGLO ( ) Website: www.cancerhopenetwork.org Cancer Support Community Cancer support community is a national organization that provides support groups, stress reduction and cancer education workshops, nutrition guidance, exercise sessions and social events. Phone: 7-466-826-Kindful ( ) Website: www.cancersupportcommunity.org National Coalition for Cancer Survivorship NCCS provides information and resources on cancer support, advocacy, and tkzfume-mz-wzra issues to cancer survivors and loved ones. Phone: 4-683-TYDX-YES ( ) Website: www.canceradvocacy.org Patient Advocate Foundation [facility] provides education, legal counseling, and referrals to cancer patients and survivors. It specializes in matters related to managed care, insurance, financial issues, job discrimination and debt crisis. Phone: Website: www.patientadvocate.org [place] Cancer Society Guidelines on Nutrition and Physical [...]
== END 2025-03-18 08:02 | disposition home or self-care (01) ==
LOC: ANHFOHIMG 08:02
PROVIDERS: PCP Nurse Practitioner Family; Visit Provider Nurse Practitioner Family
DX: M85.88 Other specified disorders of bone density and structure, other site (principal); Z78.0 Asymptomatic menopausal state; Z13.820 Encounter for screening for osteoporosis
CPT/HCPCS: 77080

== ENCOUNTER 2025-03-18 08:36 | Outpatient (CLI) | payer MEDICARE, SELFPAY ==
--- OUTSIDE RECORDS SUMMARY | 2025-03-18 08:48 | XMS_ITS | Clinical Summary ---
Author Organization [facility] Address [facility] [place] [address] Care Team Providers Care Core Sticker Name Role Phone Benjamin Ley MD Primary [...] 03/21/2020 Pneumococcal (Prevnar 13) 01/09/2016 Zoster (Zostavax) 77191 Unt/0.65Ml 01/09/2016 Social History Tobacco Use Types Packs/Day Years Used Date Smoking Tobacco: Never Assessed Comments Unknown Sex and Gender Information Value Date Recorded Sex Assigned at Not on file Legal Sex Female 6:51 AM CDT Gender Identity Not on file Sexual Orientation Not on file Last Filed Vital Signs Vital Sign Reading Time Taken Comments Blood Pressure 130/80 04/18/2023 1:09 PM VP PLATFORMS Pulse 76 04/18/2023 1:09 PM VP PLATFORMS Temperature - - Respiratory Rate - - Oxygen Saturation - - Inhaled Oxygen Concentration - - Weight 71.1 kg (156 lb 12.8 oz) 04/18/2023 1:09 PM VP PLATFORMS Height 168.9 cm (5' 6.5) 04/18/2023 1:09 PM VP PLATFORMS Body Mass Index 24.93 04/18/2023 1:09 PM VP PLATFORMS Plan of Treatment Upcoming Encounters Date Type Department Care Team (Late st Contact Info) Description 04/28/2025 8:30 AM VP PLATFORMS Appointment [facility] [address] [place], [place] [id number] Drake Panchal MD Three [facility]. [facility] [place], [place] [id number] Health Maintenance Due Date Last Done Comments [...] age to complete this topic Insurance MEDICARE [place] [employer] Care Teams Core Sticker Relationship Specialty Start Date End Date Benjamin Ley MD [address] [place] [address] PCP - General FAMILY PRACTICE 10/18/20
--- OUTSIDE RECORDS SUMMARY | 2025-03-18 08:48 | XMS_ITS ---
Author Organization [facility] Address [address] [facility] [place] [address] Care Team Providers Care Program Administrator Name Role Phone Benjamin Ley MD Primary [...] Lung Cancer Survivorship Care Plan Provided by [facility] on 08/26/18 General Information Patient Name: Shonda De La Fuente Patient : 1945 Care Team Medical Oncologist: Dr. Wyatt Perez - [phone] Surgeon: Dr. Dickson Sanford - [phone] Thoracic Surgeon: Dr. Dickson Sanford Radiation Oncologist: [...] 3 years. Annually after year 3. N/A Corporate Director Of Pharmacy: As needed or directed. as needed or [...] to the attention of your provider. RESOURCES [facility] organizations Cancer Support Community of [facility] cancer community office which include support groups (including a survivorship group), mentoring, exercise and yoga classes among other ways to get involved and connect with fellow survivors as well as resources for families and caregivers. Website: http://www.cancersupportstl.org/ Livestrong at the [facility] A physical activity and wellness program designed for cancer survivors to help achieve well-being. Contact your local [facility] to get started. The program is free to join and lasts for 12 weeks. Visit the website to see a list of participating locations. Website: https://www.[facility].org/program/livestrong Cancer Information Center at [facility]???s [facility] Call or drop by to speak with a social media content specialist or nurse navigator for questions about financial/food/housing assistance, counseling services, resources for wigs, central service tech referral and general questions about diagnosis, treatment and survivorship. There is also a survivorship monthly support group that meets at [place]. Call for more information. Website for special events/classes: https://www.[facility]/practice/[facility]/cance c-ejciltzn-hrm-special-events/ National nonprofit organizations [place] Cancer Society/National Cancer Information Center [facility] provides cancer information and support to patients, families, and caregivers. It also supportsresearch, community, education, and advocacy and public policy issues Phone: 7-855-KLY-7360 ( ) Website: www.cancer.org CancerCare Provides free, professional support services to anyone affected by cancer. CancerCare programs include counseling, education, financial assistance and practical help by trained oncology social workers and are free of charge. Phone: 6-822-883-HOPE ( ) Website: www.cancercare.org Cancer Hope Network Cancer Hope Network matches patients and families with trained volunteers who have recovered from asimilar cancer experience. Phone: 9-458-SFYMOCJ ( ) Website: www.cancerhopenetwork.org Cancer Support Community Cancer support community is a national organization that provides support groups, stress reduction and cancer education workshops, nutrition guidance, exercise sessions and social events. Phone: 5-582-543-[employer] ( ) Website: www.cancersupportcommunity.org National Coalition for Cancer Survivorship NCCS provides information and resources on cancer support, advocacy, and ueahqgn-hv-beuq issues to cancer survivors and loved ones. Phone: 0-932-IOIM-YES ( ) Website: www.canceradvocacy.org Patient Advocate Foundation [facility] provides education, legal counseling, and referrals to cancer patients and survivors. It specializes in matters related to managed care, insurance, financial issues, job discrimination and debt crisis. Phone: Website: www.patientadvocate.org [place] Cancer Society Guidelines on Nutrition and Physical [...] hot dogs), desserts, high-fat dairy products and Chinese fries. Most of the studies about cancer [...]
--- OUTSIDE RECORDS SUMMARY | 2025-03-18 08:48 | XMS_ITS | Clinical Summary ---
Author Organization [facility] Address [address] [place] [address] Care Team Prov[address] Care Drive Thru Order Taker Name Role Phone Benjamin Ley MD Primary [...] on file Legal Sex Female 10:49 AM HTML WEB DEVELOPER Gender Identity Not on file Sexual Orientation [...] Description 08/25/2025 10:15 AM CDT Office Visit [facility] Oncology and Hematology - [place] [address] [facility] [address] [place] [address] Wyatt Perez MD [address] [facility] [address] [place] [address] Health Maintenance Due Date Last [...] years Discontinued Medical Devices Implanted Type Area Program Project Analyst Device Identifier Shelf Expiration Date Model / Serial / Lot Sealant Floseal 5ml [id number] - [id number] Implanted:Qty : 1 on 07/09/2017 by Jose Alejandro Cantu MD at [facility] Sealant N/A: Arterial [employer] 09/04/2018 [id number] / / [id number] Sealant Fibrin Artiss 10ml Frzn [id number] - [id number] Implanted:Qty : 1 on 08/22/2017 by Dickson Sanford MD at [facility] Sealant Left: Chest Solstice 04/18/2019 [id number] / [id number] / [id number] Stent Zenith Flx Zt Main Bdy [id number] - [id number] Implanted:Qty : 1 on 07/09/2017 by Jose Alejandro Cantu MD at [facility] Stent N/A: Aorta COOK- INTERVENTIONAL RAD 04/18/2019 [id number] / / [id number] Description:main body compon ent Stent Znth Sprl-Z [facility] Leg Bsud-74-29-Zt [id number] - [id number] Implanted:Qty : 1 on 07/09/2017 by Jose Alejandro Cantu MD at [facility] Stent Left: Arterial COOK- AORTIC INTERVENTION 11/30/2019 [id number] / / [id number] Description:left iliac leg c omponent Stent Znth Sprl-Z Ilc Leg Fzrl-70-12-Zt [id number] - [id number] Implanted:Qty : 1 on 07/09/2017 by Jose Alejandro Cantu MD at [facility] Stent Right: Arterial COOK- AORTIC INTERVENTION 01/17/2020 [id number] / / [id number] Description:right iliac comp onent Insurance [facility] OPEN ACCESS [facility] Address: [place] [address] [address] [id number] Advance Directives For more information, please contact: [phone] * Full Code (Latest Code Status on [...] 8:36 AM 07/09/2017 4:[address] Thru Order Taker Relationship Specialty Start Date End Date Benjamin Ley MD [address] [place] [address] [place] [address] PCP - General Family Practice 03/05/24
[2025-03-18 09:25] LABS: Hematocrit 46.3 % (37.0-47.0); Hemoglobin 15.1 g/dL (12.0-15.0); Immature Granulocyte Percent A 0.3 % (0-0.5); Lymphocytes Absolute Auto 1.27 K/mm3 (0.9-3.2); Mean Corpuscular HGB Conc 32.6 g/dl (32-36); Mean Corpuscular Hemoglobin 30.9 pg (26-34); Mean Corpuscular Volume 94.7 fl (80-100); Nucleated Red Blood Cells Absolute Auto 0.000 K/mm3 (0.0-0.012); Nucleated Red Blood Cells Perc 0.0 % (0.0-0.2); Platelet Count Result 152 k/mm3 (150-375); Red Blood Count 4.89 M/mm3 (4.2-5.4); White Blood Count 4.0 K/mm3 (4.5-10.0)
[2025-03-18 09:46] LABS: Alanine Aminotransferase 24 U/L (6-35); Albumin Level 4.1 g/dL (3.5-5.1); Alkaline Phosphatase 80 U/L (38-126); Anion Gap 5 mmol/L (4-12); Aspartate Amino Transferase 34 U/L (14-36); Bilirubin,Total 0.5 mg/dL (0.2-1.3); Blood Urea Nitrogen 18 mg/dL (7-17); Calcium 9.2 mg/dL (8.4-10.2); Carbon Dioxide 25 mmol/L (22-30); Chloride 107 mmol/L (98-107); Cholesterol 181 mg/dL (0-200); Estimated Glomerular Filt Rate > 60; Glucose 109 mg/dL (65-110); HDL Direct 62 mg/dL; Potassium 4.3 mmol/L (3.4-5.0); Sodium 137 mmol/L (137-145); Total Protein 7.0 g/dL (6.3-8.2); Triglycerides 102 mg/dL (<150)
== END 2025-03-18 08:37 | disposition home or self-care (01) ==
PROVIDERS: PCP Nurse Practitioner Family; Visit Provider Nurse Practitioner Family
DX: E78.5 Hyperlipidemia, unspecified (principal); E55.9 Vitamin D deficiency, unspecified; I10 Essential (primary) hypertension
CPT/HCPCS: 36415; 80053; 80061; 82306; 85025